=== PATIENT | male | born 1975 | race Caucasian/White ===

== ENCOUNTER 2019-08-08 12:11 | Inpatient (IN) | payer SELFPAY ==
[~2019-08-08] VITALS: Ht 172.7 cm; Wt 72.6 kg
[2019-08-08] MEDS ORDERED: MULTIVIT INFUSN,ADULT 4,VIT K 10 ML, THIAMINE INJ 100 MG, FOLIC ACID INJ 1 MG in IV NOR... IV ONE ×2 (12:30→18:30)
--- NOTE | 2019-08-08 12:52 | PHYS DOC ---
Past Medical History Past Medical History: Alcoholism, Anxiety, Asthma, Depression Past Surgical History: No Surgical History Alcohol Use: Occasionally Drug Use: None Adult General Chief Complaint Chief Complaint: BLOOD IN URINE HPI HPI Patient is a 44 year old male with history of depression, anxiety, alcoholism, who presents to the ED today from a local hotel. Patient reports drinking heavily 4 days. He states he does not know the amount of beers is drunk in the last couple days. He is complaining of right flank pain rated as moderate as well as hematuria, symptoms began 4 days ago. Patient denies any suicidal or homicidal ideations. Denies any exacerbating or relieving factors to his symptoms. Review of Systems Review of Systems Constitutional: Denies fever or chills [] Eyes: Denies change in visual acuity, redness, or eye pain [] HENT: Denies nasal congestion or sore throat [] Respiratory: Denies cough or shortness of breath [] Cardiovascular: No additional information not addressed in HPI [] GI: Denies abdominal pain, nausea bloody stools or diarrhea [] : Reports hematuria. Denies dysuria Musculoskeletal: Denies back pain or joint pain [] Integument: Denies rash or skin lesions [] Neurologic: Denies headache, focal weakness or sensory changes [] Psych: Reports alcohol abuse All other systems were reviewed and found to be within normal limits, except as documented in this note. Current Medications Current Medications Current Medications Medications (Trade) Dose Ordered Sig/[facility] Start Time Stop Time Status Last Admin Dose Admin Multivitamins 10 ml/Thiamine HCl 100 mg/Folic Acid 1 mg/Sodium Chloride 1,011.2 ml @ 1,000.088 mls/hr 1X ONCE 08/08/19 12:30 08/08/19 13:30 DC 08/08/19 12:40 1,000.088 MLS/HR Allergies Allergies Allergies Coded Allergies Type Severity Reaction Last Updated Verified No Known Drug Allergies 03/28/14 No Physical Exam Physical Exam Constitutional: Well developed, well nourished, no acute distress, non-toxic appearance. [] HENT: Normocephalic, atraumatic, bilateral external ears normal, oropharynx moist, no oral exudates, nose normal. [] Eyes: PERRLA, EOMI, conjunctiva normal, no discharge. [] Neck: Normal range of motion, no tenderness, supple, no stridor. [] Cardiovascular:Heart rate regular rhythm, no murmur [] Lungs & Thorax: Bilateral breath sounds clear to auscultation [] Abdomen: Bowel sounds normal, soft, no tenderness, no masses, no pulsatile masses. [] Skin: Warm, dry, no erythema, no rash. [] Back: No tenderness, no CVA tenderness. [] Extremities: No tenderness, no cyanosis, no clubbing, ROM intact, no edema. [] Neurologic: Alert and oriented X 3, normal motor function, normal sensory function, no focal deficits noted. [] Psychologic: Flat affect, laughing and joking inappropriately. Appears unkept, smelling of urine. Current Patient Data Vital Signs Vital Signs Date Time Temp Pulse Resp B/P (MAP) Pulse Ox O2 Delivery O2 Flow Rate FiO2 08/08/19 13:43 84 18 144/86 (105) 97 Room Air 08/08/19 12:11 98.3 98.3 Lab Values Laboratory Tests Test 08/08/19 12:37 08/08/19 13:10 White Blood Count 8.3 x10^3/uL (4.0-11.0) Red Blood Count 5.42 x10^6/uL (4.30-5.70) Hemoglobin 16.3 g/dL (13.0-17.5) Hematocrit 48.6 % (39.0-53.0) Mean Corpuscular Volume 90 fL (79-100) Mean Corpuscular Hemoglobin 30 pg (25-35) Mean Corpuscular Hemoglobin Concent 33 g/dL (31-37) Red Cell Distribution Width 14.2 % (11.5-14.5) Platelet Count 144 x10^3/uL (140-400) Neutrophils (%) (Auto) 66 % (31-73) Lymphocytes (%) (Auto) 25 % (24-48) Monocytes (%) (Auto) 8 % (0-9) Eosinophils (%) (Auto) 0 % (0-3) Basophils (%) (Auto) 1 % (0-3) Neutrophils # (Auto) 5.5 x10^3/uL (1.8-7.7) Lymphocytes # (Auto) 2.0 x10^3/uL (1.0-4.8) Monocytes # (Auto) 0.7 x10^3/uL (0.0-1.1) Eosinophils # (Auto) 0.0 x10^3/uL (0.0-0.7) Basophils # (Auto) 0.1 x10^3/uL (0.0-0.2) Salicylates Level < 2.8 mg/dL (2.8-20.0) L Salicylate Last Dose Date Unknown Salicylate Last Dose Time Unknown Acetaminophen Level < 2 mcg/ml (10-30) L Acetaminophen Last Dose Date Unknown Acetaminophen Last Dose Time Unknown Ethyl Alcohol Level 432 mg/dL (0-10) *H Sodium Level 134 mmol/L (136-145) L Potassium Level 4.2 mmol/L (3.5-5.1) Chloride Level 95 mmol/L (98-107) L Carbon Dioxide Level 28 mmol/L (21-32) Anion Gap 11 (6-14) Blood Urea Nitrogen 6 mg/dL (8-26) L Creatinine 0.8 mg/dL (0.7-1.3) Estimated GFR (Cockcroft-Gault) 104.1 BUN/Creatinine Ratio 8 (6-20) Glucose Level 89 mg/dL (70-99) Calcium Level 8.4 mg/dL (8.5-10.1) L Total Bilirubin 0.7 mg/dL (0.2-1.0) Aspartate Amino Transferase (AST) 273 U/L (15-37) H Alanine Aminotransferase (ALT) 157 U/L (16-63) H Alkaline Phosphatase 151 U/L (46-116) H Total Protein 8.2 g/dL (6.4-8.2) Albumin 4.0 g/dL (3.4-5.0) Albumin/Globulin Ratio 1.0 (1.0-1.7) Lipase 240 U/L (73-393) Laboratory Tests 08/08/19 12:37 Laboratory Tests 08/08/19 13:10 EKG EKG [] Radiology/Procedures Radiology/Procedures []PROCEDURE: CT ABDOMEN PELVIS WO CONTRAST CT ABDOMEN PELVIS WO CONTRAST History: Left flank pain. Hematuria. Technique: Noncontrast examination of the abdomen and pelvis. Coronal and sagittal reconstructions were performed. Exposure: One or more of the following individualized dose reduction techniques were utilized for this examination: 1. Automated exposure control 2. Adjustment of the mA and/or kV according to patient size 3. Use of iterative reconstruction technique. Comparison: None Findings: Lower chest: No consolidation or pleural effusion. Abdomen and pelvis: Severe hepatic steatosis. The spleen, adrenal glands, pancreas and gallbladder are unremarkable. Normal appearance of the kidneys. No hydronephrosis. No intrarenal calculi. Normal appendix. No evidence of bowel obstruction. Mildly prominent upper abdominal lymph nodes. No ascites. Pelvic contents are unremarkable. Bones: Multilevel lumbar spondylosis. Leftward curvature of the thoracolumbar spine. Impression: 1. No acute intra-abdominal or pelvic pathology. No obstructing urolithiasis. 2. Mildly prominent upper abdominal lymphadenopathy, likely reactive. 3. Severe hepatic steatosis. Electronically signed by: Chester Schuler DO (08/08/2019 1:33 PM) [facility] DICTATED and SIGNED BY: CHESTER SCHULER DO DATE: 08/08/19 1333 Course & Med Decision Making Course & Med Decision Making Pertinent Labs and Imaging studies reviewed. (See chart for details) This is a 44-year-old male homeless patient presented to the ED today from the local hotel complaining of flank pain with hematuria for 4 days as well as drinking heavily which is chronic. Alochol level 432, AST 273, ALT 157, AST 151. CT of the abdomen and pelvic is negative for any acute findings. Patient is given a banana bag in the ED. I did speak to [facility] team, they will follow up with the patient tomorrow Spoke with Dr. Hess who accepted patient for admission [place] Disclaimer Sebastián Disclaimer This electronic medical record was generated, in whole or in part, using a voice recognition dictation system. Departure Departure Impression: Primary Impression: Alcoholism Disposition: 09 ADMITTED INPATIENT Condition: STABLE Referrals: NO PCP (PCP) ESTUARDO SOARES [employer]GER [employer]GET Aug 08, 2019 12:52
[2019-08-08 13:06] LABS: BASO # 0.1 x10^3/uL (0.0-0.2); BASO % 1 % (0-3); EOS % 0 % (0-3); HEMATOCRIT 48.6 % (39.0-53.0); HEMOGLOBIN 16.3 g/dL (13.0-17.5); LYMPH % 25 % (24-48); MEAN CORPUSCULAR HEMOGLOBIN 30 pg (25-35); MEAN CORPUSCULAR HGB CONC 33 g/dL (31-37); MEAN CORPUSCULAR VOLUME 90 fL (79-100); MONO # 0.7 x10^3/uL (0.0-1.1); MONO % 8 % (0-9); NEUT # 5.5 x10^3/uL (1.8-7.7); NEUT % 66 % (31-73); PLATELET COUNT 144 x10^3/uL (140-400); RED BLOOD COUNT 5.42 x10^6/uL (4.30-5.70); RED CELL DISTRIBUTION WIDTH 14.2 % (11.5-14.5); WHITE BLOOD COUNT 8.3 x10^3/uL (4.0-11.0)
[2019-08-08 13:10] LABS: SALIC < 2.8 mg/dL (2.8-20.0)
[2019-08-08 13:12] LABS: ACETAMIN < 2 mcg/ml (10-30); ETHANOL 432 mg/dL (0-10)
--- NOTE | 2019-08-08 13:36 | RAD ---
CT ABDOMEN PELVIS WO CONTRAST History: Left flank pain. Hematuria. Technique: Noncontrast examination of the abdomen and pelvis. Coronal and sagittal reconstructions were performed. Exposure: One or more of the following individualized dose reduction techniques were utilized for this examination: 1. Automated exposure control 2. Adjustment of the mA and/or kV according to patient size 3. Use of iterative reconstruction technique. Comparison: None Findings: Lower chest: No consolidation or pleural effusion. Abdomen and pelvis: Severe hepatic steatosis. The spleen, adrenal glands, pancreas and gallbladder are unremarkable. Normal appearance of the kidneys. No hydronephrosis. No intrarenal calculi. Normal appendix. No evidence of bowel obstruction. Mildly prominent upper abdominal lymph nodes. No ascites. Pelvic contents are unremarkable. Bones: Multilevel lumbar spondylosis. Leftward curvature of the thoracolumbar spine. Impression: 1. No acute intra-abdominal or pelvic pathology. No obstructing urolithiasis. 2. Mildly prominent upper abdominal lymphadenopathy, likely reactive. 3. Severe hepatic steatosis. Electronically signed by: Chester Rodriguez DO (08/08/2019 1:33 PM) [facility]
[2019-08-08 13:38] LABS: CALCIUM 8.4 mg/dL (8.5-10.1); CREATININE 0.8 mg/dL (0.7-1.3); GFR 104.1; POTASSIUM 4.2 mmol/L (3.5-5.1)
[2019-08-08 13:43] LABS: TOTAL BILIRUBIN 0.7 mg/dL (0.2-1.0); TOTAL PROTEIN 8.2 g/dL (6.4-8.2)
--- NOTE | 2019-08-08 14:23 | PDOC1 ---
History and Physical Date of Admission Date of Admission DATE: 08/08/19 TIME: 14:21 Identification/Chief Complaint Chief Complaint seen in er, 44 year old male with history of depression, anxiety, alcoholism, who presents to the ED today from a local hotel. Patient reports drinking heavily 4 days. He states he does not know the amount of beers is drunk in the last couple days BUT THINKS ABOUT 7 BEERS . He is complaining of right flank pain rated as moderate as well as hematuria, symptoms began 4 days ago. Patient denies any suicidal or homicidal ideations. states he works at [employer] AND HAS X 5 WEEKS Past Medical History Past Medical History Past Medical History Past Medical History Past Medical History: Alcoholism, Anxiety, Asthma, Depression Past Surgical History: No Surgical History Alcohol Use: Occasionally Drug Use: None FHX ETOH ABUSE Renal/: No pertinent hx Family History Family History: Alcohol Abuse, High Cholestrol, Hypertension Social History Smoke: <1 pack per day ALCOHOL: heavy Drugs: None Current Problem List Problem List Problems Medical Problems: (1) Alcoholism Status: Acute Current Medications Current Medications Current Medications Multivitamins 10 ml/Thiamine HCl 100 mg/Folic Acid 1 mg/Sodium Chloride 1,011.2 ml @ 1,000.088 mls/hr 1X ONCE IV Last administered on 08/08/19at 12:40; Start 08/08/19 at 12:30; Stop 08/08/19 at 13:30; Status DC Allergies Allergies: Coded Allergies: No Known Drug Allergies (Unverified , 03/28/14) ROS Review of System Review of Systems Review of Systems Constitutional: Denies fever or chills [] Eyes: Denies change in visual acuity, redness, or eye pain [] HENT: Denies nasal congestion or sore throat [] Respiratory: Denies cough or shortness of breath [] Cardiovascular: No additional information not addressed in HPI [] GI: Denies abdominal pain, nausea bloody stools or diarrhea [] : Reports hematuria. Denies dysuria Musculoskeletal: Denies back pain or joint pain [] Integument: Denies rash or skin lesions [] Neurologic: Denies headache, focal weakness or sensory changes [] Psych: Reports alcohol abuse 14 PT systems were reviewed and found to be within normal limits, except as documented . Cardiovascular: No Chest Pain, No Palpitations, No Orthopnea, No Paroxysmal Noc. Dyspnea, No Edema, No Lt Headedness, No Other Gastrointestinal: Yes Nausea; No Vomiting, No Abdominal Pain, No Diarrhea, No Constipation, No Melena, No Hematochezia, No Other Neurological: Yes Confusion, Yes Gait Disturbance Physical Exam Physical Exam Physical Exam Physical Exam Constitutional: Well developed, well nourished, no acute distress, non-toxic appearance. [] HENT: Normocephalic, atraumatic, bilateral external ears normal, oropharynx moist, no oral exudates, nose normal. [] Eyes: PERRLA, EOMI, conjunctiva normal, no discharge. [] Neck: Normal range of motion, no tenderness, supple, no stridor. [] Cardiovascular:Heart rate regular rhythm, no murmur [] Lungs & Thorax: Bilateral breath sounds clear to auscultation [] Abdomen: Bowel sounds normal, soft, no tenderness, no masses, no pulsatile masses. [] Skin: Warm, dry, no erythema, no rash. [] Back: No tenderness, no CVA tenderness. [] Extremities: No tenderness, no cyanosis, no clubbing, ROM intact, no edema. [] Neurologic: Alert and oriented X 3, normal motor function, normal sensory function, no focal deficits noted. [] Psychologic: Flat affect, laughing and joking inappropriately. Appears unkept, smelling of urine. General: Cooperative HEENT: Atraumatic, PERRLA, EOMI Lungs: Clear to auscultation, Normal air movement Heart: S1S2, RRR, no thrills Breasts: Not examined Abdomen: Normal bowel sounds, Soft Rectal Exam: not examined PELVIC: Examination not indicated Extremities: No cyanosis, No edema Neuro: Cranial nerves 3-12 NL Vitals Vitals Vital Signs Date Time Temp Pulse Resp B/P (MAP) Pulse Ox O2 Delivery O2 Flow Rate FiO2 08/08/19 13:43 84 18 144/86 (105) 97 Room Air 08/08/19 12:11 98.3 98.3 Labs Labs Laboratory Tests Test 08/08/19 12:37 08/08/19 13:10 White Blood Count 8.3 x10^3/uL (4.0-11.0) Red Blood Count 5.42 x10^6/uL (4.30-5.70) Hemoglobin 16.3 g/dL (13.0-17.5) Hematocrit 48.6 % (39.0-53.0) Mean Corpuscular Volume 90 fL (79-100) Mean Corpuscular Hemoglobin 30 pg (25-35) Mean Corpuscular Hemoglobin Concent 33 g/dL (31-37) Red Cell Distribution Width 14.2 % (11.5-14.5) Platelet Count 144 x10^3/uL (140-400) Neutrophils (%) (Auto) 66 % (31-73) Lymphocytes (%) (Auto) 25 % (24-48) Monocytes (%) (Auto) 8 % (0-9) Eosinophils (%) (Auto) 0 % (0-3) Basophils (%) (Auto) 1 % (0-3) Neutrophils # (Auto) 5.5 x10^3/uL (1.8-7.7) Lymphocytes # (Auto) 2.0 x10^3/uL (1.0-4.8) Monocytes # (Auto) 0.7 x10^3/uL (0.0-1.1) Eosinophils # (Auto) 0.0 x10^3/uL (0.0-0.7) Basophils # (Auto) 0.1 x10^3/uL (0.0-0.2) Salicylates Level < 2.8 mg/dL (2.8-20.0) Salicylate Last Dose Date Unknown Salicylate Last Dose Time Unknown Acetaminophen Level < 2 mcg/ml (10-30) Acetaminophen Last Dose Date Unknown Acetaminophen Last Dose Time Unknown Ethyl Alcohol Level 432 mg/dL (0-10) Sodium Level 134 mmol/L (136-145) Potassium Level 4.2 mmol/L (3.5-5.1) Chloride Level 95 mmol/L (98-107) Carbon Dioxide Level 28 mmol/L (21-32) Anion Gap 11 (6-14) Blood Urea Nitrogen 6 mg/dL (8-26) Creatinine 0.8 mg/dL (0.7-1.3) Estimated GFR (Cockcroft-Gault) 104.1 BUN/Creatinine Ratio 8 (6-20) Glucose Level 89 mg/dL (70-99) Calcium Level 8.4 mg/dL (8.5-10.1) Total Bilirubin 0.7 mg/dL (0.2-1.0) Aspartate Amino Transf (AST/SGOT) 273 U/L (15-37) Alanine Aminotransferase (ALT/SGPT) 157 U/L (16-63) Alkaline Phosphatase 151 U/L (46-116) Total Protein 8.2 g/dL (6.4-8.2) Albumin 4.0 g/dL (3.4-5.0) Albumin/Globulin Ratio 1.0 (1.0-1.7) Lipase 240 U/L (73-393) Laboratory Tests Test 08/08/19 12:37 08/08/19 13:10 White Blood Count 8.3 x10^3/uL (4.0-11.0) Red Blood Count 5.42 x10^6/uL (4.30-5.70) Hemoglobin 16.3 g/dL (13.0-17.5) Hematocrit 48.6 % (39.0-53.0) Mean Corpuscular Volume 90 fL (79-100) Mean Corpuscular Hemoglobin 30 pg (25-35) Mean Corpuscular Hemoglobin Concent 33 g/dL (31-37) Red Cell Distribution Width 14.2 % (11.5-14.5) Platelet Count 144 x10^3/uL (140-400) Neutrophils (%) (Auto) 66 % (31-73) Lymphocytes (%) (Auto) 25 % (24-48) Monocytes (%) (Auto) 8 % (0-9) Eosinophils (%) (Auto) 0 % (0-3) Basophils (%) (Auto) 1 % (0-3) Neutrophils # (Auto) 5.5 x10^3/uL (1.8-7.7) Lymphocytes # (Auto) 2.0 x10^3/uL (1.0-4.8) Monocytes # (Auto) 0.7 x10^3/uL (0.0-1.1) Eosinophils # (Auto) 0.0 x10^3/uL (0.0-0.7) Basophils # (Auto) 0.1 x10^3/uL (0.0-0.2) Salicylates Level < 2.8 mg/dL (2.8-20.0) Salicylate Last Dose Date Unknown Salicylate Last Dose Time Unknown Acetaminophen Level < 2 mcg/ml (10-30) Acetaminophen Last Dose Date Unknown Acetaminophen Last Dose Time Unknown Ethyl Alcohol Level 432 mg/dL (0-10) Sodium Level 134 mmol/L (136-145) Potassium Level 4.2 mmol/L (3.5-5.1) Chloride Level 95 mmol/L (98-107) Carbon Dioxide Level 28 mmol/L (21-32) Anion Gap 11 (6-14) Blood Urea Nitrogen 6 mg/dL (8-26) Creatinine 0.8 mg/dL (0.7-1.3) Estimated GFR (Cockcroft-Gault) 104.1 BUN/Creatinine Ratio 8 (6-20) Glucose Level 89 mg/dL (70-99) Calcium Level 8.4 mg/dL (8.5-10.1) Total Bilirubin 0.7 mg/dL (0.2-1.0) Aspartate Amino Transf (AST/SGOT) 273 U/L (15-37) Alanine Aminotransferase (ALT/SGPT) 157 U/L (16-63) Alkaline Phosphatase 151 U/L (46-116) Total Protein 8.2 g/dL (6.4-8.2) Albumin 4.0 g/dL (3.4-5.0) Albumin/Globulin Ratio 1.0 (1.0-1.7) Lipase 240 U/L (73-393) Images Images CT ABDOMEN PELVIS WO CONTRAST History: Left flank pain. Hematuria. Technique: Noncontrast examination of the abdomen and pelvis. Coronal and sagittal reconstructions were performed. Exposure: One or more of the following individualized dose reduction techniques were utilized for this examination: 1. Automated exposure control 2. Adjustment of the mA and/or kV according to patient size 3. Use of iterative reconstruction technique. Comparison: None Findings: Lower chest: No consolidation or pleural effusion. Abdomen and pelvis: Severe hepatic steatosis. The spleen, adrenal glands, pancreas and gallbladder are unremarkable. Normal appearance of the kidneys. No hydronephrosis. No intrarenal calculi. Normal appendix. No evidence of bowel obstruction. Mildly prominent upper abdominal lymph nodes. No ascites. Pelvic contents are unremarkable. Bones: Multilevel lumbar spondylosis. Leftward curvature of the thoracolumbar spine. Impression: 1. No acute intra-abdominal or pelvic pathology. No obstructing urolithiasis. 2. Mildly prominent upper abdominal lymphadenopathy, likely reactive. 3. Severe hepatic steatosis. Electronically signed by: Chester Rodriguez DO (08/08/2019 1:33 PM) [employer] VTE Prophylaxis Ordered VTE Prophylaxis Devices: No VTE Pharmacological Prophylaxi: Yes Assessment/Plan Assessment/Plan Problems Medical Problems: (1) Alcohol withdrawal Status: Acute IMPRESSION Problems SEVERE ALCOHOL ABUSE ETOH intoxication CIWA scale Severe hepatic steatosis. PAT team and assistance with placement from ADMIT IV FLUID SUPPORT BANANA BAG DVT PROPHYLAXIS BEDREST LINDA REYNOSO MD Aug 08, 2019 14:23
[2019-08-08 14:48] LABS: BILIRUBIN,URINE NEGATIVE (NEG); CLARITY,URINE CLEAR; COLOR,URINE YELLOW; NITRITE,URINE NEGATIVE (NEG); PROTEIN,URINE NEGATIVE (NEG-TRACE); UROBILINOGEN,URINE 0.2 mg/dL (0.2 mg/dL)
[2019-08-08 14:54] LABS: BARBITURATES NEG (NEG); BENZODIAZEPINES NEG (NEG); CANNABINOIDS NEG (NEG); COCAINE NEG (NEG); METHADONE NEG (NEG); OPIATES NEG (NEG); PHENCYCLIDINE NEG (NEG)
[2019-08-08 14:55] LABS: AMPHETAMINE/METHAMPHETAMINE NEG (NEG)
[2019-08-08 15:01] LABS: BACTERIA,URINE 0 /HPF (0-FEW); RBC,URINE OCC /HPF (0-2); WBC,URINE 0 /HPF (0-4)
[2019-08-08 15:22] VITALS: BP 130/90
[2019-08-08] MEDS ORDERED: ONDANSETRON PF 4 MG/2 ML VIAL. IV PRN ×2 (15:45→18:30)
[2019-08-08] MEDS ORDERED: LORazepam 0.5 MG TABLET PO PRN (18:30)
[2019-08-08] MEDS ORDERED: guaiFENesin ORAL 200 MG/10 ML LIQUID. PO PRN (18:30)
[2019-08-08] MEDS ORDERED: LORazepam 1 MG TABLET PO PRN (18:30)
[2019-08-08] MEDS ORDERED: 0.9 % SODIUM CHLORIDE 10 ML DISP.SYRIN. IV PRN (18:30)
[2019-08-08] MEDS ORDERED: diphenhydrAMINE 50 MG/ML VIAL IVP PRN (18:30)
[2019-08-08] MEDS ORDERED: ACETAMINOPHEN 325 MG TABLET. PO PRN (18:30)
[2019-08-08] MEDS ORDERED: cloNIDine HCL 0.1 MG TABLET PO PRN ×2 (18:30)
[2019-08-08] MEDS ORDERED: DOCUSATE SODIUM 100 MG CAPSULE. PO PRN (18:30)
[2019-08-08] MEDS ORDERED: HALOPERIDOL LACTATE 5 MG/ML VIAL. IVP PRN (18:30)
[2019-08-08] MEDS ORDERED: IPRATRPIUM/ALBUTEROL 0.5/2.5MG 3 ML NEBU. NEB SCH (18:30)
[2019-08-08] MEDS ORDERED: MAG HYDROX/ALUMINUM HYD/SIMETH 30 ML ORAL.SUSP PO PRN (18:30)
[2019-08-08 19:00] VITALS: BP 128/95
[2019-08-08] MEDS ORDERED: HYDR10TA2 PO (19:21)
[2019-08-08] MEDS ORDERED: KETOROLAC 30 MG/ML VIAL. IVP PRN (20:00)
[2019-08-08 23:00] VITALS: BP 133/82
[2019-08-08] MEDS: LORazepam 1 MG TABLET PO PRN (23:33)
[2019-08-09 03:00] VITALS: BP 123/87
[2019-08-09 07:00] VITALS: BP 128/69
[2019-08-09] MEDS: IPRATRPIUM/ALBUTEROL 0.5/2.5MG 3 ML NEBU. NEB SCH ×4 (07:36→19:46)
[2019-08-09] MEDS: PANTOPRAZOLE 40 MG TABLET.DR. PO SCH (08:49)
[2019-08-09] MEDS: ENOXAPARIN 40 MG/0.4 ML SYRINGE. SQ SCH (08:50)
[2019-08-09] MEDS ORDERED: FLU VAX QS 2019-20 (36MOS+)/PF 0.5 ML SYRINGE. VAX IM ONE (10:00)
[2019-08-09] MEDS: MULTIVIT INFUSN,ADULT 4,VIT K 10 ML, THIAMINE INJ 100 MG, FOLIC ACID INJ 1 MG in IV NOR... IV SCH (10:03)
--- NOTE | 2019-08-09 10:09 | PDOC ---
PROGRESS NOTES History of Present Illness History of Present Illness VTE Prophylaxis Ordered VTE Prophylaxis Devices: No VTE Pharmacological Prophylaxi: Yes Assessment/Plan Assessment/Plan Problems Medical Problems: (1) Alcohol withdrawal Status: Acute IMPRESSION Problems SEVERE ALCOHOL ABUSE ETOH intoxication CIWA scale Severe hepatic steatosis. PAT team and assistance with placement from SW ADMIT IV FLUID SUPPORT BANANA BAG DVT PROPHYLAXIS BEDREST 08/09 remains somnolent, no agitation Vitals Vitals Vital Signs Date Time Temp Pulse Resp B/P (MAP) Pulse Ox O2 Delivery O2 Flow Rate FiO2 08/09/19 07:36 97 08/09/19 07:00 98.5 128 128/69 (88) Room Air 98.5 08/09/19 03:00 18 Physical Exam General: Cooperative Abdomen: Normal bowel sounds, Soft Extremities: No cyanosis, No edema Labs LABS Laboratory Tests Test 08/08/19 12:37 08/08/19 13:10 08/08/19 14:39 White Blood Count 8.3 x10^3/uL (4.0-11.0) Red Blood Count 5.42 x10^6/uL (4.30-5.70) Hemoglobin 16.3 g/dL (13.0-17.5) Hematocrit 48.6 % (39.0-53.0) Mean Corpuscular Volume 90 fL (79-100) Mean Corpuscular Hemoglobin 30 pg (25-35) Mean Corpuscular Hemoglobin Concent 33 g/dL (31-37) Red Cell Distribution Width 14.2 % (11.5-14.5) Platelet Count 144 x10^3/uL (140-400) Neutrophils (%) (Auto) 66 % (31-73) Lymphocytes (%) (Auto) 25 % (24-48) Monocytes (%) (Auto) 8 % (0-9) Eosinophils (%) (Auto) 0 % (0-3) Basophils (%) (Auto) 1 % (0-3) Neutrophils # (Auto) 5.5 x10^3/uL (1.8-7.7) Lymphocytes # (Auto) 2.0 x10^3/uL (1.0-4.8) Monocytes # (Auto) 0.7 x10^3/uL (0.0-1.1) Eosinophils # (Auto) 0.0 x10^3/uL (0.0-0.7) Basophils # (Auto) 0.1 x10^3/uL (0.0-0.2) Salicylates Level < 2.8 mg/dL (2.8-20.0) Salicylate Last Dose Date Unknown Salicylate Last Dose Time Unknown Acetaminophen Level < 2 mcg/ml (10-30) Acetaminophen Last Dose Date Unknown Acetaminophen Last Dose Time Unknown Ethyl Alcohol Level 432 mg/dL (0-10) Sodium Level 134 mmol/L (136-145) Potassium Level 4.2 mmol/L (3.5-5.1) Chloride Level 95 mmol/L (98-107) Carbon Dioxide Level 28 mmol/L (21-32) Anion Gap 11 (6-14) Blood Urea Nitrogen 6 mg/dL (8-26) Creatinine 0.8 mg/dL (0.7-1.3) Estimated GFR (Cockcroft-Gault) 104.1 BUN/Creatinine Ratio 8 (6-20) Glucose Level 89 mg/dL (70-99) Calcium Level 8.4 mg/dL (8.5-10.1) Total Bilirubin 0.7 mg/dL (0.2-1.0) Aspartate Amino Transf (AST/SGOT) 273 U/L (15-37) Alanine Aminotransferase (ALT/SGPT) 157 U/L (16-63) Alkaline Phosphatase 151 U/L (46-116) Total Protein 8.2 g/dL (6.4-8.2) Albumin 4.0 g/dL (3.4-5.0) Albumin/Globulin Ratio 1.0 (1.0-1.7) Lipase 240 U/L (73-393) Urine Collection Type Unknown Urine Color Yellow Urine Clarity Clear Urine pH 6.0 Urine Specific [place] <=1.005 Urine Protein Negative mg/dL (NEG-TRACE) Urine Glucose (UA) Negative mg/dL (NEG) Urine Ketones (Stick) Negative mg/dL (NEG) Urine Blood Negative (NEG) Urine Nitrite Negative (NEG) Urine Bilirubin Negative (NEG) Urine Urobilinogen Dipstick 0.2 mg/dL (0.2 mg/dL) Urine Leukocyte Esterase Negative (NEG) Urine RBC Occ /HPF (0-2) Urine WBC 0 /HPF (0-4) Urine Bacteria 0 /HPF (0-FEW) Urine Mucus Mod /LPF Urine Opiates Screen Neg (NEG) Urine Methadone Screen Neg (NEG) Urine Barbiturates Neg (NEG) Urine Phencyclidine Screen Neg (NEG) Urine Amphetamine/Methamphetamine Neg (NEG) Urine Benzodiazepines Screen Neg (NEG) Urine Cocaine Screen Neg (NEG) Urine Cannabinoids Screen Neg (NEG) Urine Ethyl Alcohol Pos (NEG) Assessment and Plan Assessmemt and Plan Problems Medical Problems: (1) Alcoholism Status: Acute Comment Review of Relevant I have reviewed the following items joann (where applicable) has been applied. Labs Laboratory Tests Test 08/08/19 12:37 08/08/19 13:10 08/08/19 14:39 White Blood Count 8.3 x10^3/uL (4.0-11.0) Red Blood Count 5.42 x10^6/uL (4.30-5.70) Hemoglobin 16.3 g/dL (13.0-17.5) Hematocrit 48.6 % (39.0-53.0) Mean Corpuscular Volume 90 fL (79-100) Mean Corpuscular Hemoglobin 30 pg (25-35) Mean Corpuscular Hemoglobin Concent 33 g/dL (31-37) Red Cell Distribution Width 14.2 % (11.5-14.5) Platelet Count 144 x10^3/uL (140-400) Neutrophils (%) (Auto) 66 % (31-73) Lymphocytes (%) (Auto) 25 % (24-48) Monocytes (%) (Auto) 8 % (0-9) Eosinophils (%) (Auto) 0 % (0-3) Basophils (%) (Auto) 1 % (0-3) Neutrophils # (Auto) 5.5 x10^3/uL (1.8-7.7) Lymphocytes # (Auto) 2.0 x10^3/uL (1.0-4.8) Monocytes # (Auto) 0.7 x10^3/uL (0.0-1.1) Eosinophils # (Auto) 0.0 x10^3/uL (0.0-0.7) Basophils # (Auto) 0.1 x10^3/uL (0.0-0.2) Salicylates Level < 2.8 mg/dL (2.8-20.0) Salicylate Last Dose Date Unknown Salicylate Last Dose Time Unknown Acetaminophen Level < 2 mcg/ml (10-30) Acetaminophen Last Dose Date Unknown Acetaminophen Last Dose Time Unknown Ethyl Alcohol Level 432 mg/dL (0-10) Sodium Level 134 mmol/L (136-145) Potassium Level 4.2 mmol/L (3.5-5.1) Chloride Level 95 mmol/L (98-107) Carbon Dioxide Level 28 mmol/L (21-32) Anion Gap 11 (6-14) Blood Urea Nitrogen 6 mg/dL (8-26) Creatinine 0.8 mg/dL (0.7-1.3) Estimated GFR (Cockcroft-Gault) 104.1 BUN/Creatinine Ratio 8 (6-20) Glucose Level 89 mg/dL (70-99) Calcium Level 8.4 mg/dL (8.5-10.1) Total Bilirubin 0.7 mg/dL (0.2-1.0) Aspartate Amino Transf (AST/SGOT) 273 U/L (15-37) Alanine Aminotransferase (ALT/SGPT) 157 U/L (16-63) Alkaline Phosphatase 151 U/L (46-116) Total Protein 8.2 g/dL (6.4-8.2) Albumin 4.0 g/dL (3.4-5.0) Albumin/Globulin Ratio 1.0 (1.0-1.7) Lipase 240 U/L (73-393) Urine Collection Type Unknown Urine Color Yellow Urine Clarity Clear Urine pH 6.0 Urine Specific [place] <=1.005 Urine Protein Negative mg/dL (NEG-TRACE) Urine Glucose (UA) Negative mg/dL (NEG) Urine Ketones (Stick) Negative mg/dL (NEG) Urine Blood Negative (NEG) Urine Nitrite Negative (NEG) Urine Bilirubin Negative (NEG) Urine Urobilinogen Dipstick 0.2 mg/dL (0.2 mg/dL) Urine Leukocyte Esterase Negative (NEG) Urine RBC Occ /HPF (0-2) Urine WBC 0 /HPF (0-4) Urine Bacteria 0 /HPF (0-FEW) Urine Mucus Mod /LPF Urine Opiates Screen Neg (NEG) Urine Methadone Screen Neg (NEG) Urine Barbiturates Neg (NEG) Urine Phencyclidine Screen Neg (NEG) Urine Amphetamine/Methamphetamine Neg (NEG) Urine Benzodiazepines Screen Neg (NEG) Urine Cocaine Screen Neg (NEG) Urine Cannabinoids Screen Neg (NEG) Urine Ethyl Alcohol Pos (NEG) Laboratory Tests Test 08/08/19 12:37 08/08/19 13:10 08/08/19 14:39 White Blood Count 8.3 x10^3/uL (4.0-11.0) Red Blood Count 5.42 x10^6/uL (4.30-5.70) Hemoglobin 16.3 g/dL (13.0-17.5) Hematocrit 48.6 % (39.0-53.0) Mean Corpuscular Volume 90 fL (79-100) Mean Corpuscular Hemoglobin 30 pg (25-35) Mean Corpuscular Hemoglobin Concent 33 g/dL (31-37) Red Cell Distribution Width 14.2 % (11.5-14.5) Platelet Count 144 x10^3/uL (140-400) Neutrophils (%) (Auto) 66 % (31-73) Lymphocytes (%) (Auto) 25 % (24-48) Monocytes (%) (Auto) 8 % (0-9) Eosinophils (%) (Auto) 0 % (0-3) Basophils (%) (Auto) 1 % (0-3) Neutrophils # (Auto) 5.5 x10^3/uL (1.8-7.7) Lymphocytes # (Auto) 2.0 x10^3/uL (1.0-4.8) Monocytes # (Auto) 0.7 x10^3/uL (0.0-1.1) Eosinophils # (Auto) 0.0 x10^3/uL (0.0-0.7) Basophils # (Auto) 0.1 x10^3/uL (0.0-0.2) Salicylates Level < 2.8 mg/dL (2.8-20.0) Salicylate Last Dose Date Unknown Salicylate Last Dose Time Unknown Acetaminophen Level < 2 mcg/ml (10-30) Acetaminophen Last Dose Date Unknown Acetaminophen Last Dose Time Unknown Ethyl Alcohol Level 432 mg/dL (0-10) Sodium Level 134 mmol/L (136-145) Potassium Level 4.2 mmol/L (3.5-5.1) Chloride Level 95 mmol/L (98-107) Carbon Dioxide Level 28 mmol/L (21-32) Anion Gap 11 (6-14) Blood Urea Nitrogen 6 mg/dL (8-26) Creatinine 0.8 mg/dL (0.7-1.3) Estimated GFR (Cockcroft-Gault) 104.1 BUN/Creatinine Ratio 8 (6-20) Glucose Level 89 mg/dL (70-99) Calcium Level 8.4 mg/dL (8.5-10.1) Total Bilirubin 0.7 mg/dL (0.2-1.0) Aspartate Amino Transf (AST/SGOT) 273 U/L (15-37) Alanine Aminotransferase (ALT/SGPT) 157 U/L (16-63) Alkaline Phosphatase 151 U/L (46-116) Total Protein 8.2 g/dL (6.4-8.2) Albumin 4.0 g/dL (3.4-5.0) Albumin/Globulin Ratio 1.0 (1.0-1.7) Lipase 240 U/L (73-393) Urine Collection Type Unknown Urine Color Yellow Urine Clarity Clear Urine pH 6.0 Urine Specific [place] <=1.005 Urine Protein Negative mg/dL (NEG-TRACE) Urine Glucose (UA) Negative mg/dL (NEG) Urine Ketones (Stick) Negative mg/dL (NEG) Urine Blood Negative (NEG) Urine Nitrite Negative (NEG) Urine Bilirubin Negative (NEG) Urine Urobilinogen Dipstick 0.2 mg/dL (0.2 mg/dL) Urine Leukocyte Esterase Negative (NEG) Urine RBC Occ /HPF (0-2) Urine WBC 0 /HPF (0-4) Urine Bacteria 0 /HPF (0-FEW) Urine Mucus Mod /LPF Urine Opiates Screen Neg (NEG) Urine Methadone Screen Neg (NEG) Urine Barbiturates Neg (NEG) Urine Phencyclidine Screen Neg (NEG) Urine Amphetamine/Methamphetamine Neg (NEG) Urine Benzodiazepines Screen Neg (NEG) Urine Cocaine Screen Neg (NEG) Urine Cannabinoids Screen Neg (NEG) Urine Ethyl Alcohol Pos (NEG) Medications Current Medications Multivitamins 10 ml/Thiamine HCl 100 mg/Folic Acid 1 mg/Sodium Chloride 1,011.2 ml @ 1,000.088 mls/hr 1X ONCE IV Last administered on 08/08/19at 12:40; Start 08/08/19 at 12:30; Stop 08/08/19 at 13:30; Status DC Ondansetron HCl (Zofran) 4 mg PRN Q8HRS PRN IV NAUSEA/VOMITING; Start 08/08/19 at 15:45; Stop 08/09/19 at 15:44 Multivitamins 10 ml/Thiamine HCl 100 mg/Folic Acid 1 mg/Sodium Chloride 1,011.2 ml @ 100 mls/ hr DAILY IV Last administered on 08/09/19at 10:03; Start 07/19 11/03 at 09:00; Stop 08/13/19 at 19:07 Folic Acid (Folic Acid) 1 mg DAILY PO ; Start 08/13/19 at 09:00 Thiamine Mononitrate (Vitamin B-1) 100 mg DAILY PO ; Start 08/13/19 at 09:00 Thiamine HCl 100 mg DAILY IM ; Start 08/13/19 at 09:00; Stop 08/18/19 at 08:59 Lorazepam (Ativan) 4 mg PRN Q1HR PRN PO For CIWA 8-14 Last administered on 08/08/19at 23:33; Start 08/08/19 at 18:30 Lorazepam (Ativan) 8 mg PRN Q1HR PRN PO For CIWA 15 or greater; Start 08/08/19 at 18:30 Lorazepam (Ativan Inj) 2 mg PRN Q1HR PRN IV For CIWA 8-14; Start 08/08/19 at 18:30 Lorazepam (Ativan Inj) 4 mg PRN Q1HR PRN IV For CIWA 15 or greater Last administered on 08/09/19at 08:51; Start 08/08/19 at 18:30 Haloperidol Lactate (Haldol Inj) 5 mg PRN Q4HRS PRN IVP Hallucinatns,Confusn,Delirium; Start 08/08/19 at 18:30 Diphenhydramine HCl (Benadryl) 25 mg PRN Q15MIN PRN IVP EPS symptoms 2'Haldol admin; Start 08/08/19 at 18:30 Clonidine HCl (Catapres) 0.1 mg PRN Q1HR PRN PO SBP > 180 or DBP > 100, MRX3; Start 08/08/19 at 18:30 Lorazepam (Ativan Inj) 2 mg PRN Q15MIN PRN IV SEE COMMENTS; Start 08/08/19 at 18:30 Lorazepam (Ativan Inj) 4 mg PRN Q15MIN PRN IV SEE COMMENTS; Start 08/08/19 at 18:30 Sodium Chloride (Normal Saline Flush) 3 ml QSHIFT PRN IV AFTER MEDS AND BLOOD DRAWS; Start 08/08/19 at 18:30 Multivitamins 10 ml/Thiamine HCl 100 mg/Folic Acid 1 mg/Sodium Chloride 1,011.2 ml @ 125 mls/ hr 1X ONCE IV ; Start 08/08/19 at 18:30; Stop 08/09/19 at 02:35; Status DC Ondansetron HCl (Zofran) 4 mg PRN Q4HRS PRN IV NAUSEA/VOMITING; Start 08/08/19 at 18:30 Acetaminophen (Tylenol) 650 mg PRN Q4HRS PRN PO TEMP OVER 100.4F OR MILD PAIN; Start 08/08/19 at 18:30 Al Hydroxide/Mg Hydroxide (Mylanta Plus Xs) 30 ml PRN DAILY PRN PO HEARTBURN / GAS; Start 08/08/19 at 18:30 Clonidine HCl (Catapres) 0.1 mg PRN Q6HRS PRN PO SBP>160 OR DBP>90; Start 08/08/19 at 18:30 Docusate Sodium (Colace) 100 mg PRN BID PRN PO CONSTIPATION; Start 08/08/19 at 18:30 Albuterol/ Ipratropium (Duoneb) 3 ml Q4H NEB Last administered on 08/08/19at 20:03; Start 08/08/19 at 18:30; Stop 08/08/19 at 21:36; Status DC Guaifenesin (Robitussin) 200 mg PRN Q4HRS PRN PO COUGH; Start 08/08/19 at 18:30 Lorazepam (Ativan) 0.5 mg PRN Q4HRS PRN PO ANXIETY / AGITATION Last administered on 08/08/19at 20:27; Start 08/08/19 at 18:30 Lorazepam (Ativan Inj) 2 mg PRN Q4HRS PRN IV ANXIETY / AGITATION; Start 08/08/19 at 18:30 Enoxaparin Sodium (Lovenox 40mg Syringe) 40 mg DAILY SQ Last administered on 08/09/19at 08:50; Start 08/09/19 at 09:00 Pantoprazole Sodium (Protonix) 40 mg DAILYAC PO Last administered on 08/09/19at 08:49; Start 08/09/19 at 07:30 Ketorolac Tromethamine (Toradol 30mg Vial) 30 mg PRN Q6HRS PRN IVP PAIN Last administered on 08/08/19at 20:23; Start 08/08/19 at 20:00; Stop 08/10/19 at 19:59 Albuterol/ Ipratropium (Duoneb) 3 ml RTQID NEB ; Start 08/09/19 at 08:00 Influenza Virus Vaccine Quadrival (Afluria Quad 2019-20 (3yr Up) Syringe) 0.5 ml ONCE ONCE VAX IM ; Start 08/09/19 at 10:00; Stop 08/09/19 at 10:01; Status DC Active Scripts Active Reported Hydroxyzine Hcl 10 Mg Tablet 10 Mg PO QID Vitals/I & O Vital Sign - Last 24 Hours 08/08/19 08/08/19 08/08/19 08/08/19 12:11 12:43 13:43 15:22 Temp 98.3 97.6 98.3 97.6 Pulse 103 86 84 93 Resp 20 20 18 14 B/P (MAP) 156/98 (117) 133/81 (98) 144/86 (105) 130/90 (103) Pulse Ox 96 97 97 92 O2 Delivery Room Air Room Air Room Air Room Air 08/08/19 08/08/19 08/08/19 08/08/19 15:39 19:00 19:50 20:08 Temp 98.0 98.0 Pulse 115 Resp 18 B/P (MAP) 128/95 (106) Pulse Ox 97 98 O2 Delivery Room Air Room Air Room Air 08/08/19 08/09/19 08/09/19 08/09/19 23:00 03:00 07:00 07:36 Temp 98.9 98.1 98.5 98.9 98.1 98.5 Pulse 107 93 128 Resp 18 18 B/P (MAP) 133/82 (99) 123/87 (99) 128/69 (88) Pulse Ox 96 96 98 97 O2 Delivery Room Air Room Air Room Air Intake and Output 08/08/19 08/08/19 08/09/19 15:00 23:00 07:00 Intake Total 1000 ml 1480 ml 200 ml Output Total 200 ml Balance 1000 ml 1280 ml 200 ml LINDA REYNOSO MD Aug 09, 2019 10:09
[2019-08-09] MEDS: LORazepam 1 MG TABLET PO PRN (10:22)
[2019-08-09 11:00] VITALS: BP 142/67
--- NOTE | 2019-08-09 12:03 | NUR ---
SW following. Chart reviewed, discussed with RN. JAMES contacted [facility] team to see pt from [facility]. JAMES will continue to follow. RN notified. Addendum: 08/09/19 at 1613 by KODI RAMIREZ Bertrand from PAT met with pt, pt declined need for services, follows at [facility]. Pt was given resources for clinics in [place] as well as [place]. No further SW needs.
[2019-08-09 15:00] VITALS: BP_SYST 150; BP_SYST 159; BP_DIAS 84
--- NOTE | 2019-08-09 17:10 | NUR ---
Flu shot: at approx 1000 flu shot was offered to pt. He stated at this time he is not sure if he wants to receive a flu shot. Instructed to pt to let the nursing team know if he decides he does want a flu shot.
[2019-08-09 19:00] VITALS: BP 137/93
[2019-08-09 23:00] VITALS: BP 131/92
[2019-08-10 03:10] VITALS: BP 123/78
[2019-08-10 05:11] LABS: BASO # 0.1 x10^3/uL (0.0-0.2); BASO % 1 % (0-3); EOS # 0.1 x10^3/uL (0.0-0.7); EOS % 1 % (0-3); HEMATOCRIT 41.2 % (39.0-53.0); HEMOGLOBIN 13.7 g/dL (13.0-17.5); LYMPH # 1.3 x10^3/uL (1.0-4.8); LYMPH % 21 % (24-48); MEAN CORPUSCULAR HEMOGLOBIN 30 pg (25-35); MEAN CORPUSCULAR HGB CONC 33 g/dL (31-37); MEAN CORPUSCULAR VOLUME 91 fL (79-100); MONO # 0.6 x10^3/uL (0.0-1.1); MONO % 10 % (0-9); NEUT # 3.9 x10^3/uL (1.8-7.7); NEUT % 67 % (31-73); PLATELET COUNT 58 x10^3/uL (140-400); RED BLOOD COUNT 4.53 x10^6/uL (4.30-5.70); RED CELL DISTRIBUTION WIDTH 14.1 % (11.5-14.5); WHITE BLOOD COUNT 5.9 x10^3/uL (4.0-11.0)
[2019-08-10 05:37] LABS: ALBUMIN 3.3 g/dL (3.4-5.0); ALBUMIN/GLOBULIN RATIO 0.9 (1.0-1.7); CALCIUM 8.7 mg/dL (8.5-10.1); CREATININE 0.8 mg/dL (0.7-1.3); GFR 104.1; TOTAL BILIRUBIN 1.5 mg/dL (0.2-1.0); TOTAL PROTEIN 6.9 g/dL (6.4-8.2)
[2019-08-10 07:00] VITALS: BP 163/99
[2019-08-10] MEDS: IPRATRPIUM/ALBUTEROL 0.5/2.5MG 3 ML NEBU. NEB SCH ×4 (08:04→20:00)
[2019-08-10] MEDS: MULTIVIT INFUSN,ADULT 4,VIT K 10 ML, THIAMINE INJ 100 MG, FOLIC ACID INJ 1 MG in IV NOR... IV SCH (09:58)
[2019-08-10] MEDS: PANTOPRAZOLE 40 MG TABLET.DR. PO SCH (09:58)
[2019-08-10] MEDS: ENOXAPARIN 40 MG/0.4 ML SYRINGE. SQ SCH (09:59)
[2019-08-10 11:00] VITALS: BP 151/90
--- NOTE | 2019-08-10 13:16 | PDOC ---
PROGRESS NOTES History of Present Illness History of Present Illness VTE Prophylaxis Ordered VTE Prophylaxis Devices: No VTE Pharmacological Prophylaxi: Yes Assessment/Plan Assessment/Plan Problems Medical Problems: (1) Alcohol withdrawal Status: Acute IMPRESSION Problems SEVERE ALCOHOL ABUSE ETOH intoxication CIWA scale Severe hepatic steatosis. 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 ADMIT IV FLUID SUPPORT BANANA BAG DVT PROPHYLAXIS BEDREST gi consult [facility] HEPATIT[facility] DX SCREEN, ACUTE 08/09 remains somnolent, no agitation 08/10 mod tremors, anxious Vitals Vitals Vital Signs Date Time Temp Pulse Resp B/P (MAP) Pulse Ox O2 Delivery O2 Flow Rate FiO2 08/10/19 11:00 98.1 82 18 151/90 (110) 96 Room Air 98.1 Physical Exam General: Alert, Oriented X3, Cooperative, mild distress Heart: Regular rate Lungs: Clear Abdomen: Normal bowel sounds, Soft, No tenderness Extremities: No cyanosis, No edema Labs LABS Laboratory Tests Test 08/10/19 04:45 White Blood Count 5.9 x10^3/uL (4.0-11.0) Red Blood Count 4.53 x10^6/uL (4.30-5.70) Hemoglobin 13.7 g/dL (13.0-17.5) Hematocrit 41.2 % (39.0-53.0) Mean Corpuscular Volume 91 fL (79-100) Mean Corpuscular Hemoglobin 30 pg (25-35) Mean Corpuscular Hemoglobin Concent 33 g/dL (31-37) Red Cell Distribution Width 14.1 % (11.5-14.5) Platelet Count 58 x10^3/uL (140-400) Neutrophils (%) (Auto) 67 % (31-73) Lymphocytes (%) (Auto) 21 % (24-48) Monocytes (%) (Auto) 10 % (0-9) Eosinophils (%) (Auto) 1 % (0-3) Basophils (%) (Auto) 1 % (0-3) Neutrophils # (Auto) 3.9 x10^3/uL (1.8-7.7) Lymphocytes # (Auto) 1.3 x10^3/uL (1.0-4.8) Monocytes # (Auto) 0.6 x10^3/uL (0.0-1.1) Eosinophils # (Auto) 0.1 x10^3/uL (0.0-0.7) Basophils # (Auto) 0.1 x10^3/uL (0.0-0.2) Sodium Level 136 mmol/L (136-145) Potassium Level 4.0 mmol/L (3.5-5.1) Chloride Level 101 mmol/L (98-107) Carbon Dioxide Level 28 mmol/L (21-32) Anion Gap 7 (6-14) Blood Urea Nitrogen 10 mg/dL (8-26) Creatinine 0.8 mg/dL (0.7-1.3) Estimated GFR (Cockcroft-Gault) 104.1 BUN/Creatinine Ratio 13 (6-20) Glucose Level 124 mg/dL (70-99) Calcium Level 8.7 mg/dL (8.5-10.1) Total Bilirubin 1.5 mg/dL (0.2-1.0) Aspartate Amino Transf (AST/SGOT) 107 U/L (15-37) Alanine Aminotransferase (ALT/SGPT) 98 U/L (16-63) Alkaline Phosphatase 201 U/L (46-116) Total Protein 6.9 g/dL (6.4-8.2) Albumin 3.3 g/dL (3.4-5.0) Albumin/Globulin Ratio 0.9 (1.0-1.7) Assessment and Plan Assessmemt and Plan Problems Medical Problems: (1) Alcoholism Status: Acute Comment Review of Relevant I have reviewed the following items joann (where applicable) has been applied. Labs Laboratory Tests Test 08/08/19 14:39 08/10/19 04:45 Urine Collection Type Unknown Urine Color Yellow Urine Clarity Clear Urine pH 6.0 Urine Specific [place] <=1.005 Urine Protein Negative mg/dL (NEG-TRACE) Urine Glucose (UA) Negative mg/dL (NEG) Urine Ketones (Stick) Negative mg/dL (NEG) Urine Blood Negative (NEG) Urine Nitrite Negative (NEG) Urine Bilirubin Negative (NEG) Urine Urobilinogen Dipstick 0.2 mg/dL (0.2 mg/dL) Urine Leukocyte Esterase Negative (NEG) Urine RBC Occ /HPF (0-2) Urine WBC 0 /HPF (0-4) Urine Bacteria 0 /HPF (0-FEW) Urine Mucus Mod /LPF Urine Opiates Screen Neg (NEG) Urine Methadone Screen Neg (NEG) Urine Barbiturates Neg (NEG) Urine Phencyclidine Screen Neg (NEG) Urine Amphetamine/Methamphetamine Neg (NEG) Urine Benzodiazepines Screen Neg (NEG) Urine Cocaine Screen Neg (NEG) Urine Cannabinoids Screen Neg (NEG) Urine Ethyl Alcohol Pos (NEG) White Blood Count 5.9 x10^3/uL (4.0-11.0) Red Blood Count 4.53 x10^6/uL (4.30-5.70) Hemoglobin 13.7 g/dL (13.0-17.5) Hematocrit 41.2 % (39.0-53.0) Mean Corpuscular Volume 91 fL (79-100) Mean Corpuscular Hemoglobin 30 pg (25-35) Mean Corpuscular Hemoglobin Concent 33 g/dL (31-37) Red Cell Distribution Width 14.1 % (11.5-14.5) Platelet Count 58 x10^3/uL (140-400) Neutrophils (%) (Auto) 67 % (31-73) Lymphocytes (%) (Auto) 21 % (24-48) Monocytes (%) (Auto) 10 % (0-9) Eosinophils (%) (Auto) 1 % (0-3) Basophils (%) (Auto) 1 % (0-3) Neutrophils # (Auto) 3.9 x10^3/uL (1.8-7.7) Lymphocytes # (Auto) 1.3 x10^3/uL (1.0-4.8) Monocytes # (Auto) 0.6 x10^3/uL (0.0-1.1) Eosinophils # (Auto) 0.1 x10^3/uL (0.0-0.7) Basophils # (Auto) 0.1 x10^3/uL (0.0-0.2) Sodium Level 136 mmol/L (136-145) Potassium Level 4.0 mmol/L (3.5-5.1) Chloride Level 101 mmol/L (98-107) Carbon Dioxide Level 28 mmol/L (21-32) Anion Gap 7 (6-14) Blood Urea Nitrogen 10 mg/dL (8-26) Creatinine 0.8 mg/dL (0.7-1.3) Estimated GFR (Cockcroft-Gault) 104.1 BUN/Creatinine Ratio 13 (6-20) Glucose Level 124 mg/dL (70-99) Calcium Level 8.7 mg/dL (8.5-10.1) Total Bilirubin 1.5 mg/dL (0.2-1.0) Aspartate Amino Transf (AST/SGOT) 107 U/L (15-37) Alanine Aminotransferase (ALT/SGPT) 98 U/L (16-63) Alkaline Phosphatase 201 U/L (46-116) Total Protein 6.9 g/dL (6.4-8.2) Albumin 3.3 g/dL (3.4-5.0) Albumin/Globulin Ratio 0.9 (1.0-1.7) Laboratory Tests Test 08/10/19 04:45 White Blood Count 5.9 x10^3/uL (4.0-11.0) Red Blood Count 4.53 x10^6/uL (4.30-5.70) Hemoglobin 13.7 g/dL (13.0-17.5) Hematocrit 41.2 % (39.0-53.0) Mean Corpuscular Volume 91 fL (79-100) Mean Corpuscular Hemoglobin 30 pg (25-35) Mean Corpuscular Hemoglobin Concent 33 g/dL (31-37) Red Cell Distribution Width 14.1 % (11.5-14.5) Platelet Count 58 x10^3/uL (140-400) Neutrophils (%) (Auto) 67 % (31-73) Lymphocytes (%) (Auto) 21 % (24-48) Monocytes (%) (Auto) 10 % (0-9) Eosinophils (%) (Auto) 1 % (0-3) Basophils (%) (Auto) 1 % (0-3) Neutrophils # (Auto) 3.9 x10^3/uL (1.8-7.7) Lymphocytes # (Auto) 1.3 x10^3/uL (1.0-4.8) Monocytes # (Auto) 0.6 x10^3/uL (0.0-1.1) Eosinophils # (Auto) 0.1 x10^3/uL (0.0-0.7) Basophils # (Auto) 0.1 x10^3/uL (0.0-0.2) Sodium Level 136 mmol/L (136-145) Potassium Level 4.0 mmol/L (3.5-5.1) Chloride Level 101 mmol/L (98-107) Carbon Dioxide Level 28 mmol/L (21-32) Anion Gap 7 (6-14) Blood Urea Nitrogen 10 mg/dL (8-26) Creatinine 0.8 mg/dL (0.7-1.3) Estimated GFR (Cockcroft-Gault) 104.1 BUN/Creatinine Ratio 13 (6-20) Glucose Level 124 mg/dL (70-99) Calcium Level 8.7 mg/dL (8.5-10.1) Total Bilirubin 1.5 mg/dL (0.2-1.0) Aspartate Amino Transf (AST/SGOT) 107 U/L (15-37) Alanine Aminotransferase (ALT/SGPT) 98 U/L (16-63) Alkaline Phosphatase 201 U/L (46-116) Total Protein 6.9 g/dL (6.4-8.2) Albumin 3.3 g/dL (3.4-5.0) Albumin/Globulin Ratio 0.9 (1.0-1.7) Medications Current Medications Multivitamins 10 ml/Thiamine HCl 100 mg/Folic Acid 1 mg/Sodium Chloride 1,011.2 ml @ 1,000.088 mls/hr 1X ONCE IV Last administered on 08/08/19at 12:40; Start 08/08/19 at 12:30; Stop 08/08/19 at 13:30; Status DC Ondansetron HCl (Zofran) 4 mg PRN Q8HRS PRN IV NAUSEA/VOMITING; Start 08/08/19 at 15:45; Stop 08/09/19 at 15:44; Status DC Multivitamins 10 ml/Thiamine HCl 100 mg/Folic Acid 1 mg/Sodium Chloride 1,011.2 ml @ 100 mls/ hr DAILY IV Last administered on 08/10/19at 09:58; Start 08/09/19 at 09:00; Stop 08/13/19 at 19:07 Folic Acid (Folic Acid) 1 mg DAILY PO ; Start 08/13/19 at 09:00 Thiamine Mononitrate (Vitamin B-1) 100 mg DAILY PO ; Start 08/13/19 at 09:00 Thiamine HCl 100 mg DAILY IM ; Start 08/13/19 at 09:00; Stop 08/18/19 at 08:59; Status Cancel Lorazepam (Ativan) 4 mg PRN Q1HR PRN PO For CIWA 8-14 Last administered on 08/09/19at 10:22; Start 08/08/19 at 18:30 Lorazepam (Ativan) 8 mg PRN Q1HR PRN PO For CIWA 15 or greater; Start 08/08/19 at 18:30 Lorazepam (Ativan Inj) 2 mg PRN Q1HR PRN IV For CIWA 8-14 Last administered on 08/10/19at 05:52; Start 08/08/19 at 18:30 Lorazepam (Ativan Inj) 4 mg PRN Q1HR PRN IV For CIWA 15 or greater Last administered on 08/09/19at 08:51; Start 08/08/19 at 18:30 Haloperidol Lactate (Haldol Inj) 5 mg PRN Q4HRS PRN IVP Hallucinatns,Confusn,Delirium; Start 08/08/19 at 18:30 Diphenhydramine HCl (Benadryl) 25 mg PRN Q15MIN PRN IVP EPS symptoms 2'Haldol admin; Start 08/08/19 at 18:30 Clonidine HCl (Catapres) 0.1 mg PRN Q1HR PRN PO SBP > 180 or DBP > 100, MRX3; Start 08/08/19 at 18:30 Lorazepam (Ativan Inj) 2 mg PRN Q15MIN PRN IV SEE COMMENTS; Start 08/08/19 at 18:30; Status Cancel Lorazepam (Ativan Inj) 4 mg PRN Q15MIN PRN IV SEE COMMENTS; Start 08/08/19 at 18:30; Status Cancel Sodium Chloride (Normal Saline Flush) 3 ml QSHIFT PRN IV AFTER MEDS AND BLOOD DRAWS; Start 08/08/19 at 18:30 Multivitamins 10 ml/Thiamine HCl 100 mg/Folic Acid 1 mg/Sodium Chloride 1,011.2 ml @ 125 mls/ hr 1X ONCE IV ; Start 08/08/19 at 18:30; Stop 08/09/19 at 02:35; Status DC Ondansetron HCl (Zofran) 4 mg PRN Q4HRS PRN IV NAUSEA/VOMITING; Start 08/08/19 at 18:30 Acetaminophen (Tylenol) 650 mg PRN Q4HRS PRN PO TEMP OVER 100.4F OR MILD PAIN; Start 08/08/19 at 18:30 Al Hydroxide/Mg Hydroxide (Mylanta Plus Xs) 30 ml PRN DAILY PRN PO HEARTBURN / GAS; Start 08/08/19 at 18:30 Clonidine HCl (Catapres) 0.1 mg PRN Q6HRS PRN PO SBP>160 OR DBP>90; Start 08/08/19 at 18:30; Stop 08/10/19 at 08:58; Status DC Docusate Sodium (Colace) 100 mg PRN BID PRN PO CONSTIPATION; Start 08/08/19 at 18:30 Albuterol/ Ipratropium (Duoneb) 3 ml Q4H NEB Last administered on 08/08/19at 20:03; Start 08/08/19 at 18:30; Stop 08/08/19 at 21:36; Status DC Guaifenesin (Robitussin) 200 mg PRN Q4HRS PRN PO COUGH; Start 08/08/19 at 18:30 Lorazepam (Ativan) 0.5 mg PRN Q4HRS PRN PO ANXIETY / AGITATION Last administered on 08/08/19at 20:27; Start 08/08/19 at 18:30 Lorazepam (Ativan Inj) 2 mg PRN Q4HRS PRN IV ANXIETY / AGITATION; Start 08/08/19 at 18:30 Enoxaparin Sodium (Lovenox 40mg Syringe) 40 mg DAILY SQ Last administered on 08/10/19at 09:59; Start 08/09/19 at 09:00 Pantoprazole Sodium (Protonix) 40 mg DAILYAC PO Last administered on 08/10/19at 09:58; Start 08/09/19 at 07:30 Ketorolac Tromethamine (Toradol 30mg Vial) 30 mg PRN Q6HRS PRN IVP PAIN Last administered on 08/08/19at 20:23; Start 08/08/19 at 20:00; Stop 08/10/19 at 19:59 Albuterol/ Ipratropium (Duoneb) 3 ml RTQID NEB Last administered on 08/10/19at 08:04; Start 08/09/19 at 08:00 Influenza Virus Vaccine Quadrival (Afluria Quad 2019-20 (3yr Up) Syringe) 0.5 ml ONCE ONCE VAX IM ; Start 08/09/19 at 10:00; Stop 08/09/19 at 10:01; Status DC Active Scripts Active Reported Hydroxyzine Hcl 10 Mg Tablet 10 Mg PO QID Vitals/I & O Vital Sign - Last 24 Hours 08/09/19 08/09/19 08/09/19 08/09/19 15:00 19:00 20:00 23:00 Temp 98.6 98.4 98.6 98.4 Pulse 83 86 93 Resp 18 B/P (MAP) 150/84 (106) 137/93 (108) 131/92 (105) Pulse Ox 98 94 97 O2 Delivery Room Air Room Air Room Air Room Air 08/10/19 08/10/19 08/10/19 08/10/19 03:10 07:00 08:06 11:00 Temp 98.2 96.9 98.1 98.2 96.9 98.1 Pulse 91 114 82 Resp 18 B/P (MAP) 123/78 (93) 163/99 (120) 151/90 (110) Pulse Ox 97 99 98 96 O2 Delivery Room Air Room Air Room Air Intake and Output 08/09/19 08/09/19 08/10/19 15:00 23:00 07:00 Intake Total 250 ml 500 ml Output Total 300 ml 1025 ml Balance -50 ml -525 ml LINDA REYNOSO MD Aug 10, 2019 13:16
--- NOTE | 2019-08-10 14:20 | PDOC2 ---
CONSULT Date of Consult Date of Consult DATE: 08/10/19 TIME: 14:14 Reason for Consult Reason for Consult: Alcoholism with alcohol related hepatitis History of Present Illness Reason for Visit: This is a 44-year-old gentleman who has a long history of alcohol abuse. He de scribes periods of abstinence and then alcohol binging. He describes recent binge for the last 2 weeks. Chart reveals an admission back in 2014 for alcohol and alcohol-related withdrawal. Not sought medical attention since that time and does not have a primary care physician. Since now with acute alcohol intoxication. His liver function studies are abnormal in a pattern consistent with acute alcoholic-related hepatitis. CT scan imaging reveals severe hepatic steatosis but no masses. No obstructive picture. Denies a history of hepatitis exposure, previous liver tests problems as far as he knows. Past Medical History GI: Other (previous alcohol-related) Renal/: No pertinent hx Family History Family History: Alcohol Abuse, High Cholestrol, Hypertension Social History <1 pack per day ALCOHOL: heavy Drugs: None Current Problem List Problem List Problems Medical Problems: (1) Alcoholism Status: Acute Current Medications Current Medications Current Medications Multivitamins 10 ml/Thiamine HCl 100 mg/Folic Acid 1 mg/Sodium Chloride 1,011.2 ml @ 1,000.088 mls/hr 1X ONCE IV Last administered on 08/08/19at 12:40; Start 08/08/19 at 12:30; Stop 08/08/19 at 13:30; Status DC Ondansetron HCl (Zofran) 4 mg PRN Q8HRS PRN IV NAUSEA/VOMITING; Start 08/08/19 at 15:45; Stop 08/09/19 at 15:44; Status DC Multivitamins 10 ml/Thiamine HCl 100 mg/Folic Acid 1 mg/Sodium Chloride 1,011.2 ml @ 100 mls/ hr DAILY IV Last administered on 08/10/19at 09:58; Start 08/09/19 at 09:00; Stop 08/13/19 at 19:07 Folic Acid (Folic Acid) 1 mg DAILY PO ; Start 08/13/19 at 09:00 Thiamine Mononitrate (Vitamin B-1) 100 mg DAILY PO ; Start 08/13/19 at 09:00 Thiamine HCl 100 mg DAILY IM ; Start 08/13/19 at 09:00; Stop 08/18/19 at 08:59; Status Cancel Lorazepam (Ativan) 4 mg PRN Q1HR PRN PO For CIWA 8-14 Last administered on 08/09/19at 10:22; Start 08/08/19 at 18:30 Lorazepam (Ativan) 8 mg PRN Q1HR PRN PO For CIWA 15 or greater; Start 08/08/19 at 18:30 Lorazepam (Ativan Inj) 2 mg PRN Q1HR PRN IV For CIWA 8-14 Last administered on 08/10/19at 05:52; Start 08/08/19 at 18:30 Lorazepam (Ativan Inj) 4 mg PRN Q1HR PRN IV For CIWA 15 or greater Last administered on 08/09/19at 08:51; Start 08/08/19 at 18:30 Haloperidol Lactate (Haldol Inj) 5 mg PRN Q4HRS PRN IVP Hallucinatns,Confusn,Delirium; Start 08/08/19 at 18:30 Diphenhydramine HCl (Benadryl) 25 mg PRN Q15MIN PRN IVP EPS symptoms 2'Haldol admin; Start 08/08/19 at 18:30 Clonidine HCl (Catapres) 0.1 mg PRN Q1HR PRN PO SBP > 180 or DBP > 100, MRX3; Start 08/08/19 at 18:30 Lorazepam (Ativan Inj) 2 mg PRN Q15MIN PRN IV SEE COMMENTS; Start 08/08/19 at 18:30; Status Cancel Lorazepam (Ativan Inj) 4 mg PRN Q15MIN PRN IV SEE COMMENTS; Start 08/08/19 at 18:30; Status Cancel Sodium Chloride (Normal Saline Flush) 3 ml QSHIFT PRN IV AFTER MEDS AND BLOOD DRAWS; Start 08/08/19 at 18:30 Multivitamins 10 ml/Thiamine HCl 100 mg/Folic Acid 1 mg/Sodium Chloride 1,011.2 ml @ 125 mls/ hr 1X ONCE IV ; Start 08/08/19 at 18:30; Stop 08/09/19 at 02: 35; Status DC Ondansetron HCl (Zofran) 4 mg PRN Q4HRS PRN IV NAUSEA/VOMITING; Start 08/08/19 at 18:30 Acetaminophen (Tylenol) 650 mg PRN Q4HRS PRN PO TEMP OVER 100.4F OR MILD PAIN; Start 08/08/19 at 18:30 Al Hydroxide/Mg Hydroxide (Mylanta Plus Xs) 30 ml PRN DAILY PRN PO HEARTBURN / GAS; Start 08/08/19 at 18:30 Clonidine HCl (Catapres) 0.1 mg PRN Q6HRS PRN PO SBP>160 OR DBP>90; Start 08/08/19 at 18:30; Stop 08/10/19 at 08:58; Status DC Docusate Sodium (Colace) 100 mg PRN BID PRN PO CONSTIPATION; Start 08/08/19 at 18:30 Albuterol/ Ipratropium (Duoneb) 3 ml Q4H NEB Last administered on 08/08/19at 20:03; Start 08/08/19 at 18:30; Stop 08/08/19 at 21:36; Status DC Guaifenesin (Robitussin) 200 mg PRN Q4HRS PRN PO COUGH; Start 08/08/19 at 18:30 Lorazepam (Ativan) 0.5 mg PRN Q4HRS PRN PO ANXIETY / AGITATION Last administered on 08/08/19at 20:27; Start 08/08/19 at 18:30 Lorazepam (Ativan Inj) 2 mg PRN Q4HRS PRN IV ANXIETY / AGITATION; Start 08/08/19 at 18:30 Enoxaparin Sodium (Lovenox 40mg Syringe) 40 mg DAILY SQ Last administered on 08/10/19at 09:59; Start 08/09/19 at 09:00 Pantoprazole Sodium (Protonix) 40 mg DAILYAC PO Last administered on 08/10/19at 09:58; Start 08/09/19 at 07:30 Ketorolac Tromethamine (Toradol 30mg Vial) 30 mg PRN Q6HRS PRN IVP PAIN Last administered on 08/08/19at 20:23; Start 08/08/19 at 20:00; Stop 08/10/19 at 19:59 Albuterol/ Ipratropium (Duoneb) 3 ml RTQID NEB Last administered on 08/10/19at 08:04; Start 08/09/19 at 08:00 Influenza Virus Vaccine Quadrival (Afluria Quad 2019-20 (3yr Up) Syringe) 0.5 ml ONCE ONCE VAX IM ; Start 08/09/19 at 10:00; Stop 08/09/19 at 10:01; Status DC Active Scripts Active Reported Hydroxyzine Hcl 10 Mg Tablet 10 Mg PO QID Allergies Allergies: Coded Allergies: No Known Drug Allergies (Unverified , 03/28/14) Physical Exam General: Alert, Oriented X3, Other (mildly tremulous) HEENT: PERRLA Lungs: Clear to auscultation Heart: Regular rate, Normal S1, Normal S2 Abdomen: Normal bowel sounds, Soft, No tenderness, No hepatosplenomegaly Psych/Mental Status: Mental status NL Vitals VITALS Vital Signs Date Time Temp Pulse Resp B/P (MAP) Pulse Ox O2 Delivery O2 Flow Rate FiO2 08/10/19 11:00 98.1 82 18 151/90 (110) 96 Room Air 98.1 Labs Labs Laboratory Tests Test 08/08/19 14:39 08/10/19 04:45 Urine Collection Type Unknown Urine Color Yellow Urine Clarity Clear Urine pH 6.0 Urine Specific [place] <=1.005 Urine Protein Negative mg/dL (NEG-TRACE) Urine Glucose (UA) Negative mg/dL (NEG) Urine Ketones (Stick) Negative mg/dL (NEG) Urine Blood Negative (NEG) Urine Nitrite Negative (NEG) Urine Bilirubin Negative (NEG) Urine Urobilinogen Dipstick 0.2 mg/dL (0.2 mg/dL) Urine Leukocyte Esterase Negative (NEG) Urine RBC Occ /HPF (0-2) Urine WBC 0 /HPF (0-4) Urine Bacteria 0 /HPF (0-FEW) Urine Mucus Mod /LPF Urine Opiates Screen Neg (NEG) Urine Methadone Screen Neg (NEG) Urine Barbiturates Neg (NEG) Urine Phencyclidine Screen Neg (NEG) Urine Amphetamine/Methamphetamine Neg (NEG) Urine Benzodiazepines Screen Neg (NEG) Urine Cocaine Screen Neg (NEG) Urine Cannabinoids Screen Neg (NEG) Urine Ethyl Alcohol Pos (NEG) White Blood Count 5.9 x10^3/uL (4.0-11.0) Red Blood Count 4.53 x10^6/uL (4.30-5.70) Hemoglobin 13.7 g/dL (13.0-17.5) Hematocrit 41.2 % (39.0-53.0) Mean Corpuscular Volume 91 fL (79-100) Mean Corpuscular Hemoglobin 30 pg (25-35) Mean Corpuscular Hemoglobin Concent 33 g/dL (31-37) Red Cell Distribution Width 14.1 % (11.5-14.5) Platelet Count 58 x10^3/uL (140-400) Neutrophils (%) (Auto) 67 % (31-73) Lymphocytes (%) (Auto) 21 % (24-48) Monocytes (%) (Auto) 10 % (0-9) Eosinophils (%) (Auto) 1 % (0-3) Basophils (%) (Auto) 1 % (0-3) Neutrophils # (Auto) 3.9 x10^3/uL (1.8-7.7) Lymphocytes # (Auto) 1.3 x10^3/uL (1.0-4.8) Monocytes # (Auto) 0.6 x10^3/uL (0.0-1.1) Eosinophils # (Auto) 0.1 x10^3/uL (0.0-0.7) Basophils # (Auto) 0.1 x10^3/uL (0.0-0.2) Sodium Level 136 mmol/L (136-145) Potassium Level 4.0 mmol/L (3.5-5.1) Chloride Level 101 mmol/L (98-107) Carbon Dioxide Level 28 mmol/L (21-32) Anion Gap 7 (6-14) Blood Urea Nitrogen 10 mg/dL (8-26) Creatinine 0.8 mg/dL (0.7-1.3) Estimated GFR (Cockcroft-Gault) 104.1 BUN/Creatinine Ratio 13 (6-20) Glucose Level 124 mg/dL (70-99) Calcium Level 8.7 mg/dL (8.5-10.1) Total Bilirubin 1.5 mg/dL (0.2-1.0) Aspartate Amino Transf (AST/SGOT) 107 U/L (15-37) Alanine Aminotransferase (ALT/SGPT) 98 U/L (16-63) Alkaline Phosphatase 201 U/L (46-116) Total Protein 6.9 g/dL (6.4-8.2) Albumin 3.3 g/dL (3.4-5.0) Albumin/Globulin Ratio 0.9 (1.0-1.7) Laboratory Tests Test 08/10/19 04:45 White Blood Count 5.9 x10^3/uL (4.0-11.0) Red Blood Count 4.53 x10^6/uL (4.30-5.70) Hemoglobin 13.7 g/dL (13.0-17.5) Hematocrit 41.2 % (39.0-53.0) Mean Corpuscular Volume 91 fL (79-100) Mean Corpuscular Hemoglobin 30 pg (25-35) Mean Corpuscular Hemoglobin Concent 33 g/dL (31-37) Red Cell Distribution Width 14.1 % (11.5-14.5) Platelet Count 58 x10^3/uL (140-400) Neutrophils (%) (Auto) 67 % (31-73) Lymphocytes (%) (Auto) 21 % (24-48) Monocytes (%) (Auto) 10 % (0-9) Eosinophils (%) (Auto) 1 % (0-3) Basophils (%) (Auto) 1 % (0-3) Neutrophils # (Auto) 3.9 x10^3/uL (1.8-7.7) Lymphocytes # (Auto) 1.3 x10^3/uL (1.0-4.8) Monocytes # (Auto) 0.6 x10^3/uL (0.0-1.1) Eosinophils # (Auto) 0.1 x10^3/uL (0.0-0.7) Basophils # (Auto) 0.1 x10^3/uL (0.0-0.2) Sodium Level 136 mmol/L (136-145) Potassium Level 4.0 mmol/L (3.5-5.1) Chloride Level 101 mmol/L (98-107) Carbon Dioxide Level 28 mmol/L (21-32) Anion Gap 7 (6-14) Blood Urea Nitrogen 10 mg/dL (8-26) Creatinine 0.8 mg/dL (0.7-1.3) Estimated GFR (Cockcroft-Gault) 104.1 BUN/Creatinine Ratio 13 (6-20) Glucose Level 124 mg/dL (70-99) Calcium Level 8.7 mg/dL (8.5-10.1) Total Bilirubin 1.5 mg/dL (0.2-1.0) Aspartate Amino Transf (AST/SGOT) 107 U/L (15-37) Alanine Aminotransferase (ALT/SGPT) 98 U/L (16-63) Alkaline Phosphatase 201 U/L (46-116) Total Protein 6.9 g/dL (6.4-8.2) Albumin 3.3 g/dL (3.4-5.0) Albumin/Globulin Ratio 0.9 (1.0-1.7) Images Images CT scan revealing severe hepatic steatosis. Otherwise normal Assessment/Plan Assessment/Plan Acute alcohol-related hepatitis. The liver test abnormalities are consistent with that and parallel his previous admission 4 years ago. The x-ray revealed severe hepatic steatosis and likely may represent early cirrhosis as well. I had a long discussion with him about the importance for alcohol abstinence and recommended that he seek debt counselor and assistance in pursuing that goal, including alcohol rehabilitation. Supportive care is ongoing to avoid signs of withdrawal. A hepatitis screen has been ordered to complete the workup No other GI suggestions at this time TOMASA CHAPA MD Aug 10, 2019 14:19
[2019-08-10 15:00] VITALS: BP 138/83
[2019-08-10 19:00] VITALS: BP 137/104
[2019-08-10 23:00] VITALS: BP 145/85
[2019-08-11 03:00] VITALS: BP 133/83
[2019-08-11 05:26] LABS: BASO % 1 % (0-3); EOS # 0.1 x10^3/uL (0.0-0.7); EOS % 1 % (0-3); HEMATOCRIT 38.4 % (39.0-53.0); LYMPH # 1.4 x10^3/uL (1.0-4.8); LYMPH % 23 % (24-48); MEAN CORPUSCULAR HEMOGLOBIN 31 pg (25-35); MEAN CORPUSCULAR HGB CONC 34 g/dL (31-37); MEAN CORPUSCULAR VOLUME 91 fL (79-100); MONO # 0.6 x10^3/uL (0.0-1.1); MONO % 11 % (0-9); NEUT # 3.8 x10^3/uL (1.8-7.7); NEUT % 64 % (31-73); PLATELET COUNT 57 x10^3/uL (140-400); RED BLOOD COUNT 4.23 x10^6/uL (4.30-5.70); RED CELL DISTRIBUTION WIDTH 13.8 % (11.5-14.5); WHITE BLOOD COUNT 5.9 x10^3/uL (4.0-11.0)
[2019-08-11 05:47] LABS: ALBUMIN 3.3 g/dL (3.4-5.0); CALCIUM 8.7 mg/dL (8.5-10.1); CREATININE 0.7 mg/dL (0.7-1.3); GFR 121.4; TOTAL BILIRUBIN 0.8 mg/dL (0.2-1.0); TOTAL PROTEIN 6.5 g/dL (6.4-8.2)
[2019-08-11 07:00] VITALS: BP 127/90
--- NOTE | 2019-08-11 07:31 | PDOC ---
PROGRESS NOTES History of Present Illness History of Present Illness VTE Prophylaxis Ordered VTE Prophylaxis Devices: No VTE Pharmacological Prophylaxi: Yes Assessment/Plan Assessment/Plan Problems Medical Problems: (1) Alcohol withdrawal Status: Acute IMPRESSION Problems SEVERE ALCOHOL ABUSE ETOH intoxication CIWA scale Severe hepatic steatosis. 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 ADMIT IV FLUID SUPPORT BANANA BAG DVT PROPHYLAXIS BEDREST gi consult [facility] PROTOCOL HEPATITIS DX SCREEN, ACUTE 08/09 remains somnolent, no agitation 08/11 mod tremors, anxious, slow to improve Vitals Vitals Vital Signs Date Time Temp Pulse Resp B/P (MAP) Pulse Ox O2 Delivery O2 Flow Rate FiO2 08/11/19 03:00 98.6 79 18 133/83 (100) 98 Room Air 98.6 Physical Exam General: Alert, Oriented X3, Cooperative, mild distress, Other (mildly tremulous) Heart: Regular rate, Normal S1, Normal S2 Lungs: Clear Abdomen: Normal bowel sounds, Soft, No tenderness, No hepatosplenomegaly Extremities: No cyanosis, No edema Labs LABS Laboratory Tests Test 08/11/19 05:00 White Blood Count 5.9 x10^3/uL (4.0-11.0) Red Blood Count 4.23 x10^6/uL (4.30-5.70) Hemoglobin 13.0 g/dL (13.0-17.5) Hematocrit 38.4 % (39.0-53.0) Mean Corpuscular Volume 91 fL (79-100) Mean Corpuscular Hemoglobin 31 pg (25-35) Mean Corpuscular Hemoglobin Concent 34 g/dL (31-37) Red Cell Distribution Width 13.8 % (11.5-14.5) Platelet Count 57 x10^3/uL (140-400) Neutrophils (%) (Auto) 64 % (31-73) Lymphocytes (%) (Auto) 23 % (24-48) Monocytes (%) (Auto) 11 % (0-9) Eosinophils (%) (Auto) 1 % (0-3) Basophils (%) (Auto) 1 % (0-3) Neutrophils # (Auto) 3.8 x10^3/uL (1.8-7.7) Lymphocytes # (Auto) 1.4 x10^3/uL (1.0-4.8) Monocytes # (Auto) 0.6 x10^3/uL (0.0-1.1) Eosinophils # (Auto) 0.1 x10^3/uL (0.0-0.7) Basophils # (Auto) 0.0 x10^3/uL (0.0-0.2) Sodium Level 139 mmol/L (136-145) Potassium Level 4.0 mmol/L (3.5-5.1) Chloride Level 103 mmol/L (98-107) Carbon Dioxide Level 27 mmol/L (21-32) Anion Gap 9 (6-14) Blood Urea Nitrogen 9 mg/dL (8-26) Creatinine 0.7 mg/dL (0.7-1.3) Estimated GFR (Cockcroft-Gault) 121.4 BUN/Creatinine Ratio 13 (6-20) Glucose Level 129 mg/dL (70-99) Calcium Level 8.7 mg/dL (8.5-10.1) Total Bilirubin 0.8 mg/dL (0.2-1.0) Aspartate Amino Transf (AST/SGOT) 84 U/L (15-37) Alanine Aminotransferase (ALT/SGPT) 92 U/L (16-63) Alkaline Phosphatase 158 U/L (46-116) Total Protein 6.5 g/dL (6.4-8.2) Albumin 3.3 g/dL (3.4-5.0) Albumin/Globulin Ratio 1.0 (1.0-1.7) Assessment and Plan Assessmemt and Plan Problems Medical Problems: (1) Alcoholism Status: Acute Comment Review of Relevant I have reviewed the following items joann (where applicable) has been applied. Labs Laboratory Tests Test 08/10/19 04:45 08/11/19 05:00 White Blood Count 5.9 x10^3/uL (4.0-11.0) 5.9 x10^3/uL (4.0-11.0) Red Blood Count 4.53 x10^6/uL (4.30-5.70) 4.23 x10^6/uL (4.30-5.70) Hemoglobin 13.7 g/dL (13.0-17.5) 13.0 g/dL (13.0-17.5) Hematocrit 41.2 % (39.0-53.0) 38.4 % (39.0-53.0) Mean Corpuscular Volume 91 fL (79-100) 91 fL (79-100) Mean Corpuscular Hemoglobin 30 pg (25-35) 31 pg (25-35) Mean Corpuscular Hemoglobin Concent 33 g/dL (31-37) 34 g/dL (31-37) Red Cell Distribution Width 14.1 % (11.5-14.5) 13.8 % (11.5-14.5) Platelet Count 58 x10^3/uL (140-400) 57 x10^3/uL (140-400) Neutrophils (%) (Auto) 67 % (31-73) 64 % (31-73) Lymphocytes (%) (Auto) 21 % (24-48) 23 % (24-48) Monocytes (%) (Auto) 10 % (0-9) 11 % (0-9) Eosinophils (%) (Auto) 1 % (0-3) 1 % (0-3) Basophils (%) (Auto) 1 % (0-3) 1 % (0-3) Neutrophils # (Auto) 3.9 x10^3/uL (1.8-7.7) 3.8 x10^3/uL (1.8-7.7) Lymphocytes # (Auto) 1.3 x10^3/uL (1.0-4.8) 1.4 x10^3/uL (1.0-4.8) Monocytes # (Auto) 0.6 x10^3/uL (0.0-1.1) 0.6 x10^3/uL (0.0-1.1) Eosinophils # (Auto) 0.1 x10^3/uL (0.0-0.7) 0.1 x10^3/uL (0.0-0.7) Basophils # (Auto) 0.1 x10^3/uL (0.0-0.2) 0.0 x10^3/uL (0.0-0.2) Sodium Level 136 mmol/L (136-145) 139 mmol/L (136-145) Potassium Level 4.0 mmol/L (3.5-5.1) 4.0 mmol/L (3.5-5.1) Chloride Level 101 mmol/L (98-107) 103 mmol/L (98-107) Carbon Dioxide Level 28 mmol/L (21-32) 27 mmol/L (21-32) Anion Gap 7 (6-14) 9 (6-14) Blood Urea Nitrogen 10 mg/dL (8-26) 9 mg/dL (8-26) Creatinine 0.8 mg/dL (0.7-1.3) 0.7 mg/dL (0.7-1.3) Estimated GFR (Cockcroft-Gault) 104.1 121.4 BUN/Creatinine Ratio 13 (6-20) 13 (6-20) Glucose Level 124 mg/dL (70-99) 129 mg/dL (70-99) Calcium Level 8.7 mg/dL (8.5-10.1) 8.7 mg/dL (8.5-10.1) Total Bilirubin 1.5 mg/dL (0.2-1.0) 0.8 mg/dL (0.2-1.0) Aspartate Amino Transf (AST/SGOT) 107 U/L (15-37) 84 U/L (15-37) Alanine Aminotransferase (ALT/SGPT) 98 U/L (16-63) 92 U/L (16-63) Alkaline Phosphatase 201 U/L (46-116) 158 U/L (46-116) Total Protein 6.9 g/dL (6.4-8.2) 6.5 g/dL (6.4-8.2) Albumin 3.3 g/dL (3.4-5.0) 3.3 g/dL (3.4-5.0) Albumin/Globulin Ratio 0.9 (1.0-1.7) 1.0 (1.0-1.7) Hepatitis A IgM Antibody Nonreactive (Nonreactive) Hepatitis B Surface Antigen Nonreactive (Nonreactive) Hepatitis B Core IgM Antibody Nonreactive (Nonreactive) Hepatitis C IgG Antibody Nonreactive (Nonreactive) Laboratory Tests Test 08/11/19 05:00 White Blood Count 5.9 x10^3/uL (4.0-11.0) Red Blood Count 4.23 x10^6/uL (4.30-5.70) Hemoglobin 13.0 g/dL (13.0-17.5) Hematocrit 38.4 % (39.0-53.0) Mean Corpuscular Volume 91 fL (79-100) Mean Corpuscular Hemoglobin 31 pg (25-35) Mean Corpuscular Hemoglobin Concent 34 g/dL (31-37) Red Cell Distribution Width 13.8 % (11.5-14.5) Platelet Count 57 x10^3/uL (140-400) Neutrophils (%) (Auto) 64 % (31-73) Lymphocytes (%) (Auto) 23 % (24-48) Monocytes (%) (Auto) 11 % (0-9) Eosinophils (%) (Auto) 1 % (0-3) Basophils (%) (Auto) 1 % (0-3) Neutrophils # (Auto) 3.8 x10^3/uL (1.8-7.7) Lymphocytes # (Auto) 1.4 x10^3/uL (1.0-4.8) Monocytes # (Auto) 0.6 x10^3/uL (0.0-1.1) Eosinophils # (Auto) 0.1 x10^3/uL (0.0-0.7) Basophils # (Auto) 0.0 x10^3/uL (0.0-0.2) Sodium Level 139 mmol/L (136-145) Potassium Level 4.0 mmol/L (3.5-5.1) Chloride Level 103 mmol/L (98-107) Carbon Dioxide Level 27 mmol/L (21-32) Anion Gap 9 (6-14) Blood Urea Nitrogen 9 mg/dL (8-26) Creatinine 0.7 mg/dL (0.7-1.3) Estimated GFR (Cockcroft-Gault) 121.4 BUN/Creatinine Ratio 13 (6-20) Glucose Level 129 mg/dL (70-99) Calcium Level 8.7 mg/dL (8.5-10.1) Total Bilirubin 0.8 mg/dL (0.2-1.0) Aspartate Amino Transf (AST/SGOT) 84 U/L (15-37) Alanine Aminotransferase (ALT/SGPT) 92 U/L (16-63) Alkaline Phosphatase 158 U/L (46-116) Total Protein 6.5 g/dL (6.4-8.2) Albumin 3.3 g/dL (3.4-5.0) Albumin/Globulin Ratio 1.0 (1.0-1.7) Medications Current Medications Multivitamins 10 ml/Thiamine HCl 100 mg/Folic Acid 1 mg/Sodium Chloride 1,011.2 ml @ 1,000.088 mls/hr 1X ONCE IV Last administered on 08/08/19at 12:40; Start 08/08/19 at 12:30; Stop 08/08/19 at 13:30; Status DC Ondansetron HCl (Zofran) 4 mg PRN Q8HRS PRN IV NAUSEA/VOMITING; Start 08/08/19 at 15:45; Stop 08/09/19 at 15:44; Status DC Multivitamins 10 ml/Thiamine HCl 100 mg/Folic Acid 1 mg/Sodium Chloride 1,011.2 ml @ 100 mls/ hr DAILY IV Last administered on 08/10/19at 09:58; Start 08/09/19 at 09:00; Stop 08/13/19 at 19:07 Folic Acid (Folic Acid) 1 mg DAILY PO ; Start 08/13/19 at 09:00 Thiamine Mononitrate (Vitamin B-1) 100 mg DAILY PO ; Start 08/13/19 at 09:00 Thiamine HCl 100 mg DAILY IM ; Start 08/13/19 at 09:00; Stop 08/18/19 at 08:59; Status Cancel Lorazepam (Ativan) 4 mg PRN Q1HR PRN PO For CIWA 8-14 Last administered on 08/09/19at 10:22; Start 08/08/19 at 18:30 Lorazepam (Ativan) 8 mg PRN Q1HR PRN PO For CIWA 15 or greater; Start 08/08/19 at 18:30 Lorazepam (Ativan Inj) 2 mg PRN Q1HR PRN IV For CIWA 8-14 Last administered on 08/11/19at 03:53; Start 08/08/19 at 18:30 Lorazepam (Ativan Inj) 4 mg PRN Q1HR PRN IV For CIWA 15 or greater Last administered on 08/09/19at 08:51; Start 08/08/19 at 18:30 Haloperidol Lactate (Haldol Inj) 5 mg PRN Q4HRS PRN IVP Hallucinatns,Confusn,Delirium; Start 08/08/19 at 18:30 Diphenhydramine HCl (Benadryl) 25 mg PRN Q15MIN PRN IVP EPS symptoms 2'Haldol admin; Start 08/08/19 at 18:30 Clonidine HCl (Catapres) 0.1 mg PRN Q1HR PRN PO SBP > 180 or DBP > 100, MRX3; Start 08/08/19 at 18:30 Lorazepam (Ativan Inj) 2 mg PRN Q15MIN PRN IV SEE COMMENTS; Start 08/08/19 at 18:30; Status Cancel Lorazepam (Ativan Inj) 4 mg PRN Q15MIN PRN IV SEE COMMENTS; Start 08/08/19 at 18:30; Status Cancel Sodium Chloride (Normal Saline Flush) 3 ml QSHIFT PRN IV AFTER MEDS AND BLOOD DRAWS; Start 08/08/19 at 18:30 Multivitamins 10 ml/Thiamine HCl 100 mg/Folic Acid 1 mg/Sodium Chloride 1,011.2 ml @ 125 mls/ hr 1X ONCE IV ; Start 08/08/19 at 18:30; Stop 08/09/19 at 02:35; Status DC Ondansetron HCl (Zofran) 4 mg PRN Q4HRS PRN IV NAUSEA/VOMITING; Start 08/08/19 at 18:30 Acetaminophen (Tylenol) 650 mg PRN Q4HRS PRN PO TEMP OVER 100.4F OR MILD PAIN; Start 08/08/19 at 18:30 Al Hydroxide/Mg Hydroxide (Mylanta Plus Xs) 30 ml PRN DAILY PRN PO HEARTBURN / GAS; Start 08/08/19 at 18:30 Clonidine HCl (Catapres) 0.1 mg PRN Q6HRS PRN PO SBP>160 OR DBP>90; Start 08/08/19 at 18:30; Stop 08/10/19 at 08:58; Status DC Docusate Sodium (Colace) 100 mg PRN BID PRN PO CONSTIPATION; Start 08/08/19 at 18:30 Albuterol/ Ipratropium (Duoneb) 3 ml Q4H NEB Last administered on 08/08/19at 20:03; Start 08/08/19 at 18:30; Stop 08/08/19 at 21:36; Status DC Guaifenesin (Robitussin) 200 mg PRN Q4HRS PRN PO COUGH; Start 08/08/19 at 18:30 Lorazepam (Ativan) 0.5 mg PRN Q4HRS PRN PO ANXIETY / AGITATION Last administered on 08/08/19at 20:27; Start 08/08/19 at 18:30 Lorazepam (Ativan Inj) 2 mg PRN Q4HRS PRN IV ANXIETY / AGITATION; Start 08/08/19 at 18:30 Enoxaparin Sodium (Lovenox 40mg Syringe) 40 mg DAILY SQ Last administered on 08/10/19at 09:59; Start 08/09/19 at 09:00 Pantoprazole Sodium (Protonix) 40 mg DAILYAC PO Last administered on 08/10/19 09:58; Start 08/09/19 at 07:30 Ketorolac Tromethamine (Toradol 30mg Vial) 30 mg PRN Q6HRS PRN IVP PAIN Last administered on 08/08/19 20:23; Start 08/08/19 at 20:00; Stop 08/10/19 at 19:59; Status DC Albuterol/ Ipratropium (Duoneb) 3 ml RTQID NEB Last administered on 08/10/19at 08:04; Start 08/09/19 at 08:00 Influenza Virus Vaccine Quadrival (Afluria Quad 2019-20 (3yr Up) Syringe) 0.5 ml ONCE ONCE VAX IM ; Start 08/09/19 at 10:00; Stop 08/09/19 at 10:01; Status DC Active Scripts Active Reported Hydroxyzine Hcl 10 Mg Tablet 10 Mg PO QID Vitals/I & O Vital Sign - Last 24 Hours 08/10/19 08/10/19 08/10/19 08/10/19 08:00 08:06 11:00 15:00 Temp 98.1 98.0 98.1 98.0 Pulse 82 76 Resp 18 18 B/P (MAP) 151/90 (110) 138/83 (101) Pulse Ox 98 96 96 O2 Delivery Room Air Room Air Room Air 08/10/19 08/10/19 08/10/19 08/11/19 19:00 20:00 23:00 03:00 Temp 98.0 98.6 98.6 98.0 98.6 98.6 Pulse 81 79 79 Resp 18 18 18 B/P (MAP) 137/104 (115) 145/85 (105) 133/83 (100) Pulse Ox 96 96 98 O2 Delivery Room Air Room Air Room Air Room Air Intake and Output 08/10/19 08/10/19 08/11/19 14:59 22:59 06:59 Intake Total 800 ml 200 ml 500 ml Output Total 400 ml 800 ml Balance 800 ml -200 ml -300 ml LINDA REYNOSO MD Aug 11, 2019 07:31
[2019-08-11] MEDS: ENOXAPARIN 40 MG/0.4 ML SYRINGE. SQ SCH (08:06)
[2019-08-11] MEDS: PANTOPRAZOLE 40 MG TABLET.DR. PO SCH (08:30)
[2019-08-11] MEDS: MULTIVIT INFUSN,ADULT 4,VIT K 10 ML, THIAMINE INJ 100 MG, FOLIC ACID INJ 1 MG in IV NOR... IV SCH (08:36)
[2019-08-11 10:54] VITALS: BP 122/79
[2019-08-11 15:00] VITALS: BP 111/62
[2019-08-11 19:00] VITALS: BP 163/110
[2019-08-11] MEDS: IPRATRPIUM/ALBUTEROL 0.5/2.5MG 3 ML NEBU. NEB SCH (20:00)
[2019-08-11 23:00] VITALS: BP 150/88
[2019-08-12 03:00] VITALS: BP 125/64
[2019-08-12 07:00] VITALS: BP 142/90
[2019-08-12] MEDS: IPRATRPIUM/ALBUTEROL 0.5/2.5MG 3 ML NEBU. NEB SCH ×2 (07:50→12:00)
[2019-08-12] MEDS: PANTOPRAZOLE 40 MG TABLET.DR. PO SCH (08:15)
--- NOTE | 2019-08-12 08:20 | PDOC ---
PROGRESS NOTES Chief Complaint Chief Complaint SEVERE ALCOHOL ABUSE ETOH intoxication CIWA scale Severe hepatic steatosis. 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 Comes via EMS from a local hotel. Patient denies any suicidal or homicidal ideations. Denies any exacerbating or relieving factors to his symptoms. His liver function studies are abnormal in a pattern consistent with acute alcoholic-related hepatitis. CT scan imaging reveals severe hepatic steatosis but no masses. No obstructive picture. Denies a history of hepatitis exposure, previous liver tests problems as far as he knows. He is feeling less anxious today. CIWA requiring almost no ativan. No CP or SOB. Vitals Vitals Vital Signs Date Time Temp Pulse Resp B/P (MAP) Pulse Ox O2 Delivery O2 Flow Rate FiO2 08/12/19 03:00 98.0 87 19 125/64 (84) 95 Room Air 98.0 Physical Exam General: Alert, Oriented X3, Cooperative, mild distress, Other (mildly tremulous) Heart: Regular rate, Normal S1, Normal S2 Lungs: Clear Abdomen: Normal bowel sounds, Soft, No tenderness, No hepatosplenomegaly Extremities: No cyanosis, No edema Assessment and Plan Assessmemt and Plan Problems Medical Problems: (1) Alcoholism Status: Acute Comment Review of Relevant I have reviewed the following items joann (where applicable) has been applied. Labs Laboratory Tests Test 08/11/19 05:00 White Blood Count 5.9 x10^3/uL (4.0-11.0) Red Blood Count 4.23 x10^6/uL (4.30-5.70) Hemoglobin 13.0 g/dL (13.0-17.5) Hematocrit 38.4 % (39.0-53.0) Mean Corpuscular Volume 91 fL (79-100) Mean Corpuscular Hemoglobin 31 pg (25-35) Mean Corpuscular Hemoglobin Concent 34 g/dL (31-37) Red Cell Distribution Width 13.8 % (11.5-14.5) Platelet Count 57 x10^3/uL (140-400) Neutrophils (%) (Auto) 64 % (31-73) Lymphocytes (%) (Auto) 23 % (24-48) Monocytes (%) (Auto) 11 % (0-9) Eosinophils (%) (Auto) 1 % (0-3) Basophils (%) (Auto) 1 % (0-3) Neutrophils # (Auto) 3.8 x10^3/uL (1.8-7.7) Lymphocytes # (Auto) 1.4 x10^3/uL (1.0-4.8) Monocytes # (Auto) 0.6 x10^3/uL (0.0-1.1) Eosinophils # (Auto) 0.1 x10^3/uL (0.0-0.7) Basophils # (Auto) 0.0 x10^3/uL (0.0-0.2) Sodium Level 139 mmol/L (136-145) Potassium Level 4.0 mmol/L (3.5-5.1) Chloride Level 103 mmol/L (98-107) Carbon Dioxide Level 27 mmol/L (21-32) Anion Gap 9 (6-14) Blood Urea Nitrogen 9 mg/dL (8-26) Creatinine 0.7 mg/dL (0.7-1.3) Estimated GFR (Cockcroft-Gault) 121.4 BUN/Creatinine Ratio 13 (6-20) Glucose Level 129 mg/dL (70-99) Calcium Level 8.7 mg/dL (8.5-10.1) Total Bilirubin 0.8 mg/dL (0.2-1.0) Aspartate Amino Transf (AST/SGOT) 84 U/L (15-37) Alanine Aminotransferase (ALT/SGPT) 92 U/L (16-63) Alkaline Phosphatase 158 U/L (46-116) Total Protein 6.5 g/dL (6.4-8.2) Albumin 3.3 g/dL (3.4-5.0) Albumin/Globulin Ratio 1.0 (1.0-1.7) Medications Current Medications Multivitamins 10 ml/Thiamine HCl 100 mg/Folic Acid 1 mg/Sodium Chloride 1,011.2 ml @ 1,000.088 mls/hr 1X ONCE IV Last administered on 08/08/19at 12:40; Start 08/08/19 at 12:30; Stop 08/08/19 at 13:30; Status DC Ondansetron HCl (Zofran) 4 mg PRN Q8HRS PRN IV NAUSEA/VOMITING; Start 08/08/19 at 15:45; Stop 08/09/19 at 15:44; Status DC Multivitamins 10 ml/Thiamine HCl 100 mg/Folic Acid 1 mg/Sodium Chloride 1,011.2 ml @ 100 mls/ hr DAILY IV Last administered on 08/11/19at 08:36; Start 08/09/19 at 09:00; Stop 08/13/19 at 19:07 Folic Acid (Folic Acid) 1 mg DAILY PO ; Start 08/13/19 at 09:00 Thiamine Mononitrate (Vitamin B-1) 100 mg DAILY PO ; Start 08/13/19 at 09:00 Thiamine HCl 100 mg DAILY IM ; Start 08/13/19 at 09:00; Stop 08/18/19 at 08:59; Status Cancel Lorazepam (Ativan) 4 mg PRN Q1HR PRN PO For CIWA 8-14 Last administered on 08/09/19at 10:22; Start 08/08/19 at 18:30 Lorazepam (Ativan) 8 mg PRN Q1HR PRN PO For CIWA 15 or greater; Start 08/08/19 at 18:30 Lorazepam (Ativan Inj) 2 mg PRN Q1HR PRN IV For CIWA 8-14 Last administered on 08/12/19at 08:15; Start 08/08/19 at 18:30 Lorazepam (Ativan Inj) 4 mg PRN Q1HR PRN IV For CIWA 15 or greater Last administered on 08/09/19at 08:51; Start 08/08/19 at 18:30 Haloperidol Lactate (Haldol Inj) 5 mg PRN Q4HRS PRN IVP Hallucinatns,Confusn,Delirium; Start 08/08/19 at 18:30 Diphenhydramine HCl (Benadryl) 25 mg PRN Q15MIN PRN IVP EPS symptoms 2'Haldol admin; Start 08/08/19 at 18:30 Clonidine HCl (Catapres) 0.1 mg PRN Q1HR PRN PO SBP > 180 or DBP > 100, MRX3; Start 08/08/19 at 18:30 Lorazepam (Ativan Inj) 2 mg PRN Q15MIN PRN IV SEE COMMENTS; Start 08/08/19 at 18:30; Status Cancel Lorazepam (Ativan Inj) 4 mg PRN Q15MIN PRN IV SEE COMMENTS; Start 08/08/19 at 18:30; Status Cancel Sodium Chloride (Normal Saline Flush) 3 ml QSHIFT PRN IV AFTER MEDS AND BLOOD D RAWS; Start 08/08/19 at 18:30 Multivitamins 10 ml/Thiamine HCl 100 mg/Folic Acid 1 mg/Sodium Chloride 1,011.2 ml @ 125 mls/ hr 1X ONCE IV ; Start 08/08/19 at 18:30; Stop 08/09/19 at 02:35; Status DC Ondansetron HCl (Zofran) 4 mg PRN Q4HRS PRN IV NAUSEA/VOMITING; Start 08/08/19 at 18:30 Acetaminophen (Tylenol) 650 mg PRN Q4HRS PRN PO TEMP OVER 100.4F OR MILD PAIN; Start 08/08/19 at 18:30 Al Hydroxide/Mg Hydroxide (Mylanta Plus Xs) 30 ml PRN DAILY PRN PO HEARTBURN / GAS; Start 08/08/19 at 18:30 Clonidine HCl (Catapres) 0.1 mg PRN Q6HRS PRN PO SBP>160 OR DBP>90; Start 08/08/19 at 18:30; Stop 08/10/19 at 08:58; Status DC Docusate Sodium (Colace) 100 mg PRN BID PRN PO CONSTIPATION; Start 08/08/19 at 18:30 Albuterol/ Ipratropium (Duoneb) 3 ml Q4H NEB Last administered on 08/08/19at 20:03; Start 08/08/19 at 18:30; Stop 08/08/19 at 21:36; Status DC Guaifenesin (Robitussin) 200 mg PRN Q4HRS PRN PO COUGH; Start 08/08/19 at 18:30 Lorazepam (Ativan) 0.5 mg PRN Q4HRS PRN PO ANXIETY / AGITATION Last administered on 08/08/19at 20:27; Start 08/08/19 at 18:30 Lorazepam (Ativan Inj) 2 mg PRN Q4HRS PRN IV ANXIETY / AGITATION; Start 08/08/19 at 18:30 Enoxaparin Sodium (Lovenox 40mg Syringe) 40 mg DAILY SQ Last administered on 08/10/19at 09:59; Start 08/09/19 at 09:00 Pantoprazole Sodium (Protonix) 40 mg DAILYAC PO Last administered on 08/12/19at 08:15; Start 08/09/19 at 07:30 Ketorolac Tromethamine (Toradol 30mg Vial) 30 mg PRN Q6HRS PRN IVP PAIN Last administered on 08/08/19at 20:23; Start 08/08/19 at 20:00; Stop 08/10/19 at 19:59; Status DC Albuterol/ Ipratropium (Duoneb) 3 ml RTQID NEB Last administered on 08/10/19at 08:04; Start 08/09/19 at 08:00 Influenza Virus Vaccine Quadrival (Afluria Quad 2019-20 (3yr Up) Syringe) 0.5 ml ONCE ONCE VAX IM ; Start 08/09/19 at 10:00; Stop 08/09/19 at 10:01; Status DC Active Scripts Active Reported Hydroxyzine Hcl 10 Mg Tablet 10 Mg PO QID Vitals/I & O Vital Sign - Last 24 Hours 08/11/19 08/11/19 08/11/19 08/11/19 08:30 10:54 15:00 19:00 Temp 97.7 98.5 97.9 97.7 98.5 97.9 Pulse 64 81 79 Resp B/P (MAP) 122/79 (93) 111/62 (78) 163/110 (127) Pulse Ox 97 96 97 O2 Delivery Room Air Room Air Room Air Room Air 08/11/19 08/11/19 08/12/19 19:43 23:00 03:00 Temp 97.9 98.0 97.9 98.0 Pulse 70 87 Resp B/P (MAP) 150/88 (108) 125/64 (84) Pulse Ox 96 95 O2 Delivery Room Air Room Air Room Air Intake and Output 08/11/19 08/11/19 08/12/19 15:00 23:00 07:00 Intake Total 600 ml 0 ml 300 ml Output Total 800 ml 1250 ml Balance 600 ml -800 ml -950 ml GERARD ISABEL MD Aug 12, 2019 08:20
[2019-08-12] MEDS: MULTIVIT INFUSN,ADULT 4,VIT K 10 ML, THIAMINE INJ 100 MG, FOLIC ACID INJ 1 MG in IV NOR... IV SCH (08:42)
[2019-08-12] MEDS: ENOXAPARIN 40 MG/0.4 ML SYRINGE. SQ SCH (08:44)
[2019-08-12 11:00] VITALS: BP 133/98
--- NOTE | 2019-08-12 12:40 | NUR ---
SW following. Chart reviewed, discussed with RN. RN advised no SW needs. Pt has been cleared by PAT team. JAMES will continue to follow should any discharge needs arise. Addendum: 08/12/19 at 1535 by KODI RAMIREZ RN contacted JAMES to advise pt needing to go to a homeless care home, and would like [facility]. JAMES contacted [facility], pt is on probation from the care home and cannot return until after August 23 2019. JAMES provided RN with information for [facility], advised pt discharge there as they open at 1500 and is first come first serve. RN contacted JAMES back stating pt wanting a homeless care home closer. JAMES advised this is pt main option in terms of being able to get into a homeless care home today. No further SW needs.
[2019-08-12] MEDS ORDERED: LORA0.5T96 PO (14:03)
--- NOTE | 2019-08-12 14:07 | PDOC3 ---
Discharge Summary Visit Information Date of Admission: Aug 08, 2019 Date of Discharge: Aug 12, 2019 Admitting Diagnosis: Hematuria, ETOH intoxication Final Diagnosis Problems Medical Problems: (1) Alcoholism Status: Acute Brief Hospital Course Allergies Allergies Coded Allergies Type Severity Reaction Last Updated Verified No Known Drug Allergies 03/28/14 No Vital Signs Vital Signs Date Time Temp Pulse Resp B/P (MAP) Pulse Ox O2 Delivery O2 Flow Rate FiO2 08/12/19 11:00 98.1 93 16 133/98 (110) 96 Room Air 98.1 Lab Results Laboratory Tests Test 08/11/19 05:00 White Blood Count 5.9 x10^3/uL (4.0-11.0) Red Blood Count 4.23 x10^6/uL (4.30-5.70) Hemoglobin 13.0 g/dL (13.0-17.5) Hematocrit 38.4 % (39.0-53.0) Mean Corpuscular Volume 91 fL (79-100) Mean Corpuscular Hemoglobin 31 pg (25-35) Mean Corpuscular Hemoglobin Concent 34 g/dL (31-37) Red Cell Distribution Width 13.8 % (11.5-14.5) Platelet Count 57 x10^3/uL (140-400) Neutrophils (%) (Auto) 64 % (31-73) Lymphocytes (%) (Auto) 23 % (24-48) Monocytes (%) (Auto) 11 % (0-9) Eosinophils (%) (Auto) 1 % (0-3) Basophils (%) (Auto) 1 % (0-3) Neutrophils # (Auto) 3.8 x10^3/uL (1.8-7.7) Lymphocytes # (Auto) 1.4 x10^3/uL (1.0-4.8) Monocytes # (Auto) 0.6 x10^3/uL (0.0-1.1) Eosinophils # (Auto) 0.1 x10^3/uL (0.0-0.7) Basophils # (Auto) 0.0 x10^3/uL (0.0-0.2) Sodium Level 139 mmol/L (136-145) Potassium Level 4.0 mmol/L (3.5-5.1) Chloride Level 103 mmol/L (98-107) Carbon Dioxide Level 27 mmol/L (21-32) Anion Gap 9 (6-14) Blood Urea Nitrogen 9 mg/dL (8-26) Creatinine 0.7 mg/dL (0.7-1.3) Estimated GFR (Cockcroft-Gault) 121.4 BUN/Creatinine Ratio 13 (6-20) Glucose Level 129 mg/dL (70-99) Calcium Level 8.7 mg/dL (8.5-10.1) Total Bilirubin 0.8 mg/dL (0.2-1.0) Aspartate Amino Transf (AST/SGOT) 84 U/L (15-37) Alanine Aminotransferase (ALT/SGPT) 92 U/L (16-63) Alkaline Phosphatase 158 U/L (46-116) Total Protein 6.5 g/dL (6.4-8.2) Albumin 3.3 g/dL (3.4-5.0) Albumin/Globulin Ratio 1.0 (1.0-1.7) Brief Hospital Course Mr Mak is a 44yo M w/ PMHx ETOH abuse, Anxiety, Asthma, Depression who p/w hematuria, right flank pain and heavy ETOH use for 4 days. Comes via EMS from a local hotel. Patient denies any suicidal or homicidal ideations. Denies any exacerbating or relieving factors to his symptoms. His liver function studies are abnormal in a pattern consistent with acute alcoholic-related hepatitis. CT scan imaging reveals severe hepatic steatosis but no masses. No obstructive picture. Denies a history of hepatitis exposure, previous liver tests problems as far as he knows. He is feeling less anxious today. CIWA requiring almost no ativan. No CP or SOB. He is almost completely outside ETOH withdrawal window. He is homeless, and due to the declining weather, will confirm he has somewhere to go prior to discharge. 08/09 remains somnolent, no agitation 08/11 mod tremors, anxious, slow to improve SEVERE ALCOHOL ABUSE ETOH intoxication [facility] scale Severe hepatic steatosis. 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 ADMIT IV FLUID SUPPORT BANANA BAG DVT PROPHYLAXIS BEDREST gi consult [facility] PROTOCOL HEPATITIS DX SCREEN, ACUTE Greater than 30 minutes spent on d/c Discharge Information Condition at Discharge: Improved Follow Up: Weeks Disposition/Orders: D/C to Home Scheduled Hydroxyzine Hcl (Hydroxyzine Hcl) 10 Mg Tablet, 10 MG PO QID for anxiety, (Reported) Entered as Reported by: REHANA GRANT on 08/08/191920 Last Action: New Order on 08/08/191920 by REHANA GRANT Scheduled PRN Lorazepam (Ativan) 0.5 Mg Tablet, 0.5 MG PO PRN Q4HRS PRN for ANXIETY / AGITATI ON for 2 Days, #8 Prescribed by: GERARD ISABEL MD on 08/12/19 1404 GERARD ISABEL MD Aug 12, 2019 14:07
[2019-08-12 15:00] VITALS: BP 154/100
--- NOTE | 2019-08-12 15:58 | NUR ---
Discharge Note: WEI DE JESUS [address] Discharge instructions and discharge home medications reviewed with Patient and a copy given. All questions have been answered and understanding verbalized. The following instructions and handouts were given: discharge instructions, new prescription, education and follow up recommendations. Discontinued lines and drains: Peripheral IV discontinued intact. Patient discharged to Home or Self Care with [facility] Transport Personnel via [facility] off unit.
[2019-08-13] MEDS ORDERED: FOLIC ACID 1 MG TABLET. PO SCH (09:00)
[2019-08-13] MEDS ORDERED: THIAMINE 100 MG TABLET. PO SCH (09:00)
[2019-08-13] MEDS ORDERED: THIAMINE IM 200 MG/2 ML VIAL. IM SCH (09:00)
== END 2019-08-12 16:00 | disposition home or self-care (01) | DRG 434 ==
LOC: ER 12:11 → 5 SOUTH 14:02
PROVIDERS: ADMIT Family Medicine; ATTEND Family Medicine
DX: K70.10 Alcoholic hepatitis without ascites (principal); J45.909 Unspecified asthma, uncomplicated; F41.9 Anxiety disorder, unspecified; F17.210 Nicotine dependence, cigarettes, uncomplicated; F10.229 Alcohol dependence with intoxication, unspecified; K76.0 Fatty (change of) liver, not elsewhere classified; Z59.0 Homelessness; Z82.49 Family history of ischemic heart disease and other diseases of the circulatory system; Z81.1 Family history of alcohol abuse and dependence
CPT/HCPCS: 36415; 74176; 80053; 80307; 80329; 81001; 83690; 85025; 86705; 86709; 86803; 87340; 90471; 90686; 94640; 94760; 96365; 96366; G0480; J1650; J1885; J2060; J7030; J7620; 99285-25; G0378